=== PATIENT | male | born 1945 | race Caucasian/White ===

== ENCOUNTER 2016-04-26 21:29 | Inpatient (IN) | payer OTHER, MEDICAID ==
--- NOTE | 2016-04-26 22:28 | EDPHY ---
H & P Stated Complaint: intoxication? HPI/ROS: HPI CHIEF COMPLAINT: [ ] HISTORY OF PRESENT ILLNESS: [Need 4: Location, Duration, Severity, Quality, Context, Timing Modifying Factors, Associated S&S] Past Medical History: Past Surgical History: Social History: Family History: ROS REVIEW OF SYSTEMS: A comprehensive 10 point review of systems is otherwise negative aside from elements mentioned in the history of present illness. Exam Constitutional triage nursing summary reviewed, vital signs reviewed, awake/ alert. Eyes normal conjunctivae and sclera, EOMI, PERRLA. HENT normal inspection, atraumatic, moist mucus membranes, no epistaxis, neck supple/ no meningismus, no raccoon eyes. Respiratory clear to auscultation bilaterally, normal breath sounds, no respiratory distress, no wheezing. Cardiovascular rate normal, regular rhythm, no murmur, no edema, distal pulses normal. Gastrointestinal soft, non-tender, no rebound, no guarding, normal bowel sounds, no distension, no pulsatile mass. Genitourinary no CVA tenderness. Musculoskeletal no midline vertebral tenderness, full range of motion, no calf swelling, no tenderness of extremities, no meningismus, good pulses, neurovascularly intact. Skin pink, warm, & dry, no rash, skin atraumatic. Neurologic awake, alert and oriented x 3, AAOx3, moves all 4 extremities equally, motor intact, sensory intact, CN II-XII intact, normal cerebellar, normal vision, normal speech. Psychiatric normal mood/affect. Heme/Lymph/Immune no lymphadenopathy. Differential Diagnosis: Medical Decision Making: Re-evaluation: Source: Patient - Personal History Current Tetanus/Diphtheria Vaccine: Unsure Current Tetanus Diphtheria and Acellular Pertussis (TDAP): Unsure - Medical/Surgical History Hx Asthma: Yes Hx Chronic Respiratory Disease: No Hx Diabetes: No Hx Cardiac Disease: Yes Hx Renal Disease: No Hx Cirrhosis: No Hx Alcoholism: Yes Hx HIV/AIDS: No Hx Splenectomy or Spleen Trauma: No Other PMH: PMH- HTN, HLD, CAD, ASTHMA CHILD, ETOH. PSH- CARDIAC STENT X1 - Social History Smoking Status: Current every day smoker Constitutional: Initial Vital Signs Temperature (C) 37 C 04/26/16 21:29 Heart Rate 106 H 04/26/16 21:29 Respiratory Rate 14 04/26/16 21:29 Blood Pressure 108/74 04/26/16 21:29 O2 Sat (%) 88 L 04/26/16 21:29 O2 Delivery Mode Room Air Allergies/Adverse Reactions: No Known Allergies Allergy (Unverified 12/10/13 12:35) Home Medications: Medication Instructions Recorded Clopidogrel Bisulfate [Plavix (*)] 75 mg PO DAILY 12/20/13 Ramipril [Altace 5mg (*)] 5 mg PO DAILY 12/20/13 Atorvastatin Calcium [Lipitor 40 40 mg PO DAILY 01/24/15 mg (*)] Carvedilol [Coreg (*)] 6.25 mg PO BIDMEAL 02/12/15 Aspirin EC [Aspirin EC 81 mg (*)] 81 mg PO DAILY #100 tab 02/13/15 Docusate Sodium [Colace 100 MG (*)] 100 mg PO BID #60 cap 02/13/15 HYDROcodone/APAP 10/325 [[place] 1 - 2 tab PO Q6 PRN #30 tab 02/13/15 10/325 (*)] celeCOXIB [Celebrex (*)] 200 mg PO DAILY #20 cap 02/13/15 Medical Decision Making - Data Points Laboratory Results: 04/26/16 22:03 Ethyl Alcohol Pending
[2016-04-26 22:44] LABS: ETHANOL SERUM 353 mg/dL (0-10)
--- NOTE | 2016-04-26 22:58 | EDPHY ---
H & P Stated Complaint: intoxication? Time Seen by Provider: 04/26/16 22:54 HPI/ROS: HPI: 70-year-old male presents to emergency department brought in by EMS found down in an elevator where he lives with chief concern alcohol intoxication. Denies striking his head. Denies dizziness, headache, visual changes, neck pain , shortness of breath, chest pain, abdominal pain, nausea, vomiting. Drinks a large amount of alcohol daily. Lives alone. ROS:10 point review of systems is negative other than as stated in HPI Source: Patient - Personal History Current Tetanus/Diphtheria Vaccine: Unsure Current Tetanus Diphtheria and Acellular Pertussis (TDAP): Unsure - Medical/Surgical History Hx Asthma: Yes Hx Chronic Respiratory Disease: No Hx Diabetes: No Hx Cardiac Disease: Yes Hx Renal Disease: No Hx Cirrhosis: No Hx Alcoholism: Yes Hx HIV/AIDS: No Hx Splenectomy or Spleen Trauma: No Other PMH: PMH- HTN, HLD, CAD, ASTHMA CHILD, ETOH. PSH- CARDIAC STENT X1 - Family History Significant Family History: No pertinent family hx - Social History Smoking Status: Current every day smoker Alcohol Use: Heavy Drug Use: None Additional Social History: Lives alone - Physical Exam Exam: Temp 37.0, heart rate 106, respiratory rate 14, blood pressure 108/74, 88% on room air General: Awake, alert, calm, cooperative. No acute distress. Head: Normalocephalic. Atraumatic. EENT: PERRLA. EOMI. No pallor or injection. Anicteric. No nystagmus. No injection. TMs intact bilaterally with normal landmarks. No rhinnorhea, nasal passages clear. Oropharynx without redness, exudates, or lesions. Tonsils 2+ bilaterally, no exudates. Neck: Supple, nontender. No lymphadenopathy. Full range of motion. No meningismus. Respiratory: Breathing unlabored. Breath sounds equal and diminished bilaterally. CV: Chest nontender, atraumatic. Heart rate regular. No murmur, distal pulses 2+ bilaterally. Brisk cap refill all extremities. GI: Abdomen soft, nontender. Bowel sounds normoactive and positive x4 quadrants. : No suprapubic tenderness. No CVA or flank tenderness. Neuro: Alert. Oriented x 3. Speech clear. Nonfocal cranial nerves throughout. Sensation intact all extremities. Skin: Skin warm, dry, intact. No rashes, abrasions, or lacerations. Skin turgor normal. Extremities: Full range of motion in all 4 extremities. Strength 5+ all extremities. Constitutional: Initial Vital Signs Temperature (C) 37 C 04/26/16 21:29 Heart Rate 106 H 04/26/16 21:29 Respiratory Rate 14 04/26/16 21:29 Blood Pressure 108/74 04/26/16 21:29 O2 Sat (%) 88 L 04/26/16 21:29 O2 Delivery Mode Nasal Cannula O2 (L/minute) 2 Allergies/Adverse Reactions: No Known Allergies Allergy (Unverified 12/10/13 12:35) Home Medications: Medication Instructions Recorded Clopidogrel Bisulfate [Plavix (*)] 75 mg PO DAILY 12/20/13 Ramipril [Altace 5mg (*)] 5 mg PO DAILY 12/20/13 Atorvastatin Calcium [Lipitor 40 40 mg PO DAILY 01/24/15 mg (*)] Carvedilol [Coreg (*)] 6.25 mg PO BIDMEAL 02/12/15 Aspirin EC [Aspirin EC 81 mg (*)] 81 mg PO DAILY #100 tab 02/13/15 Docusate Sodium [Colace 100 MG (*)] 100 mg PO BID #60 cap 02/13/15 HYDROcodone/APAP 10/325 [[place] 1 - 2 tab PO Q6 PRN #30 tab 02/13/15 10/325 (*)] celeCOXIB [Celebrex (*)] 200 mg PO DAILY #20 cap 02/13/15 Medical Decision Making - Diagnostics Imaging: CT Brain Without Contrast 2308 hours Indication: Closed head injury. Rule out intracranial hemorrhage. Alcohol use. Impression: 1. Stable mild atrophy. 2. No hemorrhage, mass effect, or definite acute peripheral infarct. 3. Stable mild microvascular ischemic disease. ED Course/Re-evaluation: 2300: 70-year-old male presents to emergency department brought in by EMS found down in an elevator where he lives. Blood alcohol level 353. He denies striking his head. He denies shortness of breath or chest pain. Oxygen saturation is 88% on room air. Patient has chronic COPD. H&H stable. CO2 16. Anion gap 26. CT head negative for acute changes. 0015: 86% on room air. 2 duo nebs given. Lungs with occasional expiratory wheeze and rhonchi thereafter. 0115: Patient 79% on room air with ambulation. 2 L O2 nasal cannula 95%. Given 60 mg prednisone. Admitted to hospitalist service Dr. Hatfield. Bed Requested. Care of this patient transferred to my colleague Dr. Sander Jerez. Differential Diagnosis: Differential includes but is not limited to alcohol withdrawal, ACS, metabolic derangement, dehydration, hypoxia - Data Points Laboratory Results: Laboratory Results 04/26/16 22:03 04/26/16 22:03 04/27/16 04/26/16 00:46 22:03 WBC 3.50 L 10^3/uL (3.80-9.50) RBC 3.57 L 10^6/uL (4.40-6.38) Hgb 13.8 g/dL (13.7-17.5) Hct 39.5 L % (40.0-51.0) MCV 110.6 H fL (81.5-99.8) MCH 38.7 H pg (27.9-34.1) MCHC 34.9 g/dL (32.4-36.7) RDW 14.5 % (11.5-15.2) Plt Count 62 L 10^3/uL (150-400) MPV 9.8 fL (8.7-11.7) Neut % (Auto) 65.1 % (39.3-74.2) Lymph % (Auto) 22.6 % (15.0-45.0) [place] % (Auto) 8.6 % (4.5-13.0) Eos % (Auto) 0.6 % (0.6-7.6) Baso % (Auto) 1.7 % (0.3-1.7) Nucleat RBC Rel Count 0.6 H % (0.0-0.2) Absolute Neuts (auto) 2.28 10^3/uL (1.70-6.50) Absolute Lymphs (auto) 0.79 L 10^3/uL (1.00-3.00) Absolute Monos (auto) 0.30 10^3/uL (0.30-0.80) Absolute Eos (auto) 0.02 L 10^3/uL (0.03-0.40) Absolute Basos (auto) 0.06 10^3/uL (0.02-0.10) Absolute Nucleated RBC 0.02 H 10^3/uL (0-0.01) Immature Gran % 1.4 H % (0.0-1.1) Immature Gran # 0.05 10^3/uL (0.00-0.10) Sodium 142 mEq/L (134-144) Potassium 4.7 mEq/L (3.5-5.2) Chloride 100 mEq/L (97-110) Carbon Dioxide 16 L mEq/l (22-31) Anion Gap 26 mEq/L (8-16) BUN 22 mg/dL (7-23) Creatinine 1.1 mg/dL (0.7-1.3) Estimated GFR > 60 Glucose 79 mg/dL (70-100) Calcium 8.0 L mg/dL (8.5-10.4) Urine Color MARGARETTE Urine Appearance HAZY Urine pH 5.0 (5.0-7.5) Ur Specific [place] 1.023 (1.002-1.030) Urine Protein 2+ H (NEGATIVE) Urine Ketones 2+ H (NEGATIVE) Urine Blood 2+ H (NEGATIVE) Urine Nitrate NEGATIVE (NEGATIVE) Urine Bilirubin NEGATIVE (NEGATIVE) Urine Urobilinogen 4.0 H EU (0.2-1.0) Ur Leukocyte Esterase NEGATIVE (NEGATIVE) Urine RBC 1-3 /hpf (0-3) Urine WBC 1-3 /hpf (0-3) Ur Epithelial Cells TRACE /lpf (NONE-1+) Hyaline Casts 25-50 H /lpf (0-1) Urine Mucus 2+ H /lpf (NONE-1+) Ur Culture Indicated? NOT INDICATED (NI) Urine Glucose NEGATIVE (NEGATIVE) Urine Opiates Screen NEGATIVE (NEGATIVE) Urine Barbiturates NEGATIVE (NEGATIVE) Ur Phencyclidine Scrn NEGATIVE (NEGATIVE) Ur Amphetamine Screen NEGATIVE (NEGATIVE) U Benzodiazepines Scrn NEGATIVE (NEGATIVE) Urine Cocaine Screen NEGATIVE (NEGATIVE) U Marijuana (THC) Screen NEGATIVE (NEGATIVE) Ethyl Alcohol 353 H mg/dL (0-10) Medications Given: Discontinued Medications Albuterol/Ipratropium (Duoneb) 3 ml IH EDNOW ONE Stop: 04/27/16 00:21 Last Admin: 04/27/16 00:25 Dose: 3 ml Sodium Chloride (Ns) 1,000 mls @ 0 mls/hr IV ONCE ONE PRN Reason: Wide Open Stop: 04/26/16 23:00 Last Admin: 04/26/16 23:18 Dose: 1,000 mls Departure - Departure Disposition: [facility] Inpatient Acute Clinical Impression: Alcohol intoxication, hypoxia, COPD (chronic obstructive pulmonary disease) Condition: Good Instructions: Alcohol Intoxication (ED), Hypoxia (ED) Additional Instructions: Plan: Go directly to the [facility] for alcohol withdrawal Follow up with primary care Referrals: NONE *PRIMARY CARE P,. [Primary Care Provider] - As per Instructions
[2016-04-26] MEDS ORDERED: NS 1,000 ML IV ONE (22:59)
--- NOTE | 2016-04-26 23:15 | CPEKG ---
Heart Rate: 83 RR Interval: 723 P-R Interval: 196 QRSD Interval: 104 QT Interval: 428 QTC Interval: 503 P [place]: 82 QRS [place]: 66 T Wave [place]: 32 EKG Severity - ABNORMAL ECG - EKG Impression: SINUS RHYTHM EKG Impression: LOW VOLTAGE WITH RIGHT AXIS DEVIATION EKG Impression: PROLONGED QT INTERVAL Electronically Signed By: Stas Jerez 27-Apr-2016 07:08:14
--- NOTE | 2016-04-26 23:38 | CT ---
CT Brain Without Contrast 2308 hours History: Closed head injury. Rule out intracranial hemorrhage. Alcohol use. Technique: Axial computed tomographic images of the brain without contrast. Images were reconstruct ed down to 1.25 mm slice thickness. Dose reduction techniques were utilized. Comparison the prior CT study of December 10, 2013. Findings: Ventricles, cisterns, and sulci are widened consistent with stable mild atrophy. No hydroc ephalus, masses, midline shift/herniation, or subdural hematomas. No intraparenchymal hemorrhage or m ass effect. Stable mild hypodensities are seen in the white matter of bilateral cerebral hemispheres. There is no acute peripheral cerebral infarct seen. Arteriosclerotic calcifications are noted asso ciated with distal ICA in the parasellar location bilaterally. Bone windows demonstrate no displaced fractures. There is mild to moderate mucosal thickening right maxillary sinus. The remainder of the paranasal si nuses are clear as well as mastoid air cells. Impression: 1. Stable mild atrophy. 2. No hemorrhage, mass effect, or definite acute peripheral infarct. 3. Stable mild microvascular ischemic disease. These findings were discussed by telephone with Trinity Zuñiga NP at 2333 hours.
[2016-04-26 23:47] LABS: % IMMATURE GRANULYOCYTES 1.4 % (0.0-1.1); ABSOLUTE IMMATURE GRANULOCYTES 0.05 10^3/uL (0.00-0.10); ABSOLUTE NRBC COUNT 0.02 10^3/uL (0-0.01); ADD DIFF? NO; ADD MORPH? NO; ADD SCAN? NO; ATYPICAL LYMPHOCYTE FLAG 0 (0-99); FRAGMENT RBC FLAG 0 (0-99); HEMATOCRIT 39.5 % (40.0-51.0); HEMOGLOBIN 13.8 g/dL (13.7-17.5); LEFT SHIFT FLG 0 (0-99); LIPEMIA HEMOLYSIS FLAG 90 (0-99); MEAN CELL HEMOGLOBIN 38.7 pg (27.9-34.1); MEAN CELL HEMOGLOBIN CONCENTR. 34.9 g/dL (32.4-36.7); MEAN CELL VOLUME 110.6 fL (81.5-99.8); MEAN PLATELET VOLUME 9.8 fL (8.7-11.7); NRBC-AUTO% 0.6 % (0.0-0.2); PLATELET CLUMPS FLAG 0 (0-99); PLATELET COUNT 62 10^3/uL (150-400); RED BLOOD CELL COUNT 3.57 10^6/uL (4.40-6.38); RED CELL DISTRIBUTION WIDTH 14.5 % (11.5-15.2)
[2016-04-26 23:52] LABS: ANION GAP 26 mEq/L (8-16); CARBON DIOXIDE 16 mEq/l (22-31); CHLORIDE 100 mEq/L (97-110); CREATININE 1.1 mg/dL (0.7-1.3); GLOMERULAR FILTRATION RATE > 60; GLUCOSE 79 mg/dL (70-100); POTASSIUM 4.7 mEq/L (3.5-5.2); SODIUM 142 mEq/L (134-144)
[2016-04-27] MEDS ORDERED: IPRATROPIUM/ALBUTEROL 3 ML DEYVIAL IH ONE ×2 (00:20→00:53)
[2016-04-27] MEDS ORDERED: IPRATROPIUM/ALBUTEROL 3 ML DEYVIAL ONE (00:20)
[2016-04-27 01:03] LABS: COLOR AMBER; LEUKOCYTE ESTERASE,URINE NEGATIVE (NEGATIVE); NITRITE,URINE NEGATIVE (NEGATIVE)
[2016-04-27 01:09] LABS: HYALINE CASTS 25-50 /lpf (0-1); MUCUS 2+ /lpf (NONE-1+)
[2016-04-27] MEDS ORDERED: ONDANSETRON DISINTEGRATING 4 MG TAB PO PRN (02:09)
[2016-04-27] MEDS ORDERED: ONDANSETRON 4 MG/2 ML VIAL IVP PRN (02:09)
[2016-04-27] MEDS ORDERED: ACETAMINOPHEN 325 MG TAB PO PRN (02:09)
[2016-04-27] MEDS ORDERED: ALBUTEROL 3 ML DEYVIAL IH PRN (02:09)
[2016-04-27] MEDS ORDERED: LORazepam 2 MG/ML INJ ONE (02:10)
[2016-04-27] MEDS ORDERED: MAG HYDROX/AL HYDROX/SIMETH 30 ML UDCUP PO PRN (02:11)
[2016-04-27] MEDS ORDERED: NS 1,000 ML IV SCH (02:15)
[2016-04-27] MEDS: LORazepam 2 MG/ML INJ IVP PRN ×3 (02:20→11:55)
[2016-04-27 06:35] LABS: % IMMATURE GRANULYOCYTES 0.8 % (0.0-1.1); ABSOLUTE IMMATURE GRANULOCYTES 0.03 10^3/uL (0.00-0.10); ADD DIFF? NO; ADD MORPH? NO; ADD SCAN? NO; ATYPICAL LYMPHOCYTE FLAG 0 (0-99); FRAGMENT RBC FLAG 0 (0-99); HEMATOCRIT 32.9 % (40.0-51.0); HEMOGLOBIN 11.7 g/dL (13.7-17.5); LEFT SHIFT FLG 0 (0-99); LIPEMIA HEMOLYSIS FLAG 90 (0-99); MEAN CELL HEMOGLOBIN CONCENTR. 35.6 g/dL (32.4-36.7); MEAN CELL VOLUME 109.7 fL (81.5-99.8); MEAN PLATELET VOLUME 9.6 fL (8.7-11.7); PLATELET CLUMPS FLAG 0 (0-99); RED CELL DISTRIBUTION WIDTH 14.6 % (11.5-15.2)
[2016-04-27 06:39] LABS: PLATELET COUNT 40 10^3/uL (150-400)
[2016-04-27] MEDS: IPRATROPIUM/ALBUTEROL 3 ML DEYVIAL IH SCH ×3 (06:44→17:03)
--- NOTE | 2016-04-27 06:46 | PDGENHP ---
History and Physical - Chief Complaint alcohol intoxication - History of Present Illness Patient is a 70-year-old male with a history of COPD, CAD , chronic continuous alcohol use who presents to the ED after being found on the ground in the elevator of his apartment building. Patient was intoxicated and unable to stand up on his own, so EMS was called. Patient states he had been drinking alcohol about 1 pt of vodka over the course of the day, remembers getting to the elevator and falling, he denies any head trauma or loss of consciousness. Reports fall was mechanical in nature. He did not want to be brought to the ER but was unable to stand on his own, so his building-mates called an ambulance. He denies any recent fevers, chills, chest pain, cough, shortness of breath, nausea, vomiting, diarrhea or urinary complaints. On arrival to the ED patient was afebrile hemodynamically stable, but hypoxic on room air. Labs are significant for thrombocytopenia, no leukocytosis, normal BMP an alcohol level of greater than 300. Chest x-ray was unremarkable, other than evidence of COPD. Hypoxia did not improve with nebs, so patient was admitted to the hospitalist service for further management. History Information - Allergies/Home Medication List Allergies/Adverse Reactions: No Known Allergies Allergy (Unverified 12/10/13 12:35) Home Medications: Clopidogrel Bisulfate [Plavix (*)] 75 mg PO DAILY 12/20/13 [Last Taken 02/04/15 08:00] Ramipril [Altace 5mg (*)] 5 mg PO DAILY 12/20/13 [Last Taken 02/11/15 08:00] Atorvastatin Calcium [Lipitor 40 mg (*)] 40 mg PO DAILY 01/24/15 [Last Taken 08:00] Carvedilol [Coreg (*)] 6.25 mg PO BIDMEAL 02/12/15 [Last Taken 02/11/15 08:00] I have personally reviewed and updated: family history, medical history, social history, surgical history - Past Medical History Additional medical history: CAD s/p 2 stents in distant past. COPD. chronic alcohol use. chronic tobacco use - Surgical History Reports: no pertinent surgical hx - Family History Positive for: CAD - Social History Smoking Status: Current every day smoker (1 PPD x 20 years) Alcohol Use: Heavy (1 pint of vodka daily) Drug Use: None Additional social history: patient lives alone in an independent living facility, he has 1 son who lives in [place]. 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 Review of Systems ROS: 10pt was reviewed & negative except for what was stated in HPI & below Physical Exam Temp Pulse Resp BP Pulse Ox 36.8 C 102 H 16 135/73 H 93 04/27/16 02:34 04/27/16 02:34 04/27/16 02:34 04/27/16 02:34 04/27/16 02:34 O2 (L/minute) 3 Constitutional: no apparent distress, appears nourished, not in pain, other ( Tremulous) Eyes: PERRL, anicteric sclera, EOMI Ears, Nose, Mouth, Throat: moist mucous membranes, hearing normal, ears appear normal, no oral mucosal ulcers Cardiovascular: regular rate and rhythym, no murmur, rub, or gallop, pulses symmetric bilaterally, tachycardia, No JVD, No edema Peripheral Pulses: 2+: dorsalis-pedis (R), dorsalis-pedis (L) Respiratory: no respiratory distress, no rales or rhonchi, clear to auscultation Gastrointestinal: normoactive bowel sounds, soft, non-tender abdomen, no palpable masses Genitourinary: no bladder fullness, no bladder tenderness Skin: warm, normal color, no rashes or abrasions, no fluctuance, No mottled Musculoskeletal: full muscle strength, no muscle tenderness, normal joint ROM, no joint effusions Neurologic: AAOx3, sensation intact bilaterally, CN II-XII Intact, No weakness, No numbness Psychiatric: interacting appropriately, not anxious, not encephalopathic, thought process linear, other ( intoxicated, but answering all questions and following commands appropriately, mild distal tremor present) Lab Data & Imaging Review 04/27/16 06:00 04/27/16 06:00 WBC 3.92 10^3/uL (3.80-9.50) 04/27/16 06:00 RBC 3.00 10^6/uL (4.40-6.38) L 04/27/16 06:00 Hgb 11.7 g/dL (13.7-17.5) L 04/27/16 06:00 Hct 32.9 % (40.0-51.0) L 04/27/16 06:00 MCV 109.7 fL (81.5-99.8) H 04/27/16 06:00 MCH 39.0 pg (27.9-34.1) H 04/27/16 06:00 MCHC 35.6 g/dL (32.4-36.7) 04/27/16 06:00 RDW 14.6 % (11.5-15.2) 04/27/16 06:00 Plt Count 40 10^3/uL (150-400) L 04/27/16 06:00 MPV 9.6 fL (8.7-11.7) 04/27/16 06:00 Neut % (Auto) 45.1 % (39.3-74.2) 04/27/16 06:00 Lymph % (Auto) 42.9 % (15.0-45.0) 04/27/16 06:00 Bee % (Auto) 9.9 % (4.5-13.0) 04/27/16 06:00 Eos % (Auto) 0.5 % (0.6-7.6) L 04/27/16 06:00 Baso % (Auto) 0.8 % (0.3-1.7) 04/27/16 06:00 Nucleat RBC Rel Count 0.0 % (0.0-0.2) 04/27/16 06:00 Absolute Neuts (auto) 1.77 10^3/uL (1.70-6.50) 04/27/16 06:00 Absolute Lymphs (auto) 1.68 10^3/uL (1.00-3.00) 04/27/16 06:00 Absolute Monos (auto) 0.39 10^3/uL (0.30-0.80) 04/27/16 06:00 Absolute Eos (auto) 0.02 10^3/uL (0.03-0.40) L 04/27/16 06:00 Absolute Basos (auto) 0.03 10^3/uL (0.02-0.10) 04/27/16 06:00 Absolute Nucleated RBC 0.00 10^3/uL (0-0.01) 04/27/16 06:00 Immature Gran % 0.8 % (0.0-1.1) 04/27/16 06:00 Immature Gran # 0.03 10^3/uL (0.00-0.10) 04/27/16 06:00 Sodium 142 mEq/L (134-144) 04/26/16 22:03 Potassium 4.7 mEq/L (3.5-5.2) 04/26/16 22:03 Chloride 100 mEq/L (97-110) 04/26/16 22:03 Carbon Dioxide 16 mEq/l (22-31) L 04/26/16 22:03 Anion Gap 26 mEq/L (8-16) 04/26/16 22:03 BUN 22 mg/dL (7-23) 04/26/16 22:03 Creatinine 1.1 mg/dL (0.7-1.3) 04/26/16 22:03 Estimated GFR > 60 04/26/16 22:03 Glucose 79 mg/dL (70-100) 04/26/16 22:03 Calcium 8.0 mg/dL (8.5-10.4) L 04/26/16 22:03 Urine Color MARGARETTE 04/27/16 00:46 Urine Appearance HAZY 04/27/16 00:46 Urine pH 5.0 (5.0-7.5) 04/27/16 00:46 Ur Specific [place] 1.023 (1.002-1.030) 04/27/16 00:46 Urine Protein 2+ (NEGATIVE) H 04/27/16 00:46 Urine Ketones 2+ (NEGATIVE) H 04/27/16 00:46 Urine Blood 2+ (NEGATIVE) H 04/27/16 00:46 Urine Nitrate NEGATIVE (NEGATIVE) 04/27/16 00:46 Urine Bilirubin NEGATIVE (NEGATIVE) 04/27/16 00:46 Urine Urobilinogen 4.0 EU (0.2-1.0) H 04/27/16 00:46 Ur Leukocyte Esterase NEGATIVE (NEGATIVE) 04/27/16 00:46 Urine RBC 1-3 /hpf (0-3) 04/27/16 00:46 Urine WBC 1-3 /hpf (0-3) 04/27/16 00:46 Ur Epithelial Cells TRACE /lpf (NONE-1+) 04/27/16 00:46 Hyaline Casts 25-50 /lpf (0-1) H 04/27/16 00:46 Urine Mucus 2+ /lpf (NONE-1+) H 04/27/16 00:46 Ur Culture Indicated? NOT INDICATED (NI) 04/27/16 00:46 Urine Glucose NEGATIVE (NEGATIVE) 04/27/16 00:46 Urine Opiates Screen NEGATIVE (NEGATIVE) 04/27/16 00:46 Urine Barbiturates NEGATIVE (NEGATIVE) 04/27/16 00:46 Ur Phencyclidine Scrn NEGATIVE (NEGATIVE) 04/27/16 00:46 Ur Amphetamine Screen NEGATIVE (NEGATIVE) 04/27/16 00:46 U Benzodiazepines Scrn NEGATIVE (NEGATIVE) 04/27/16 00:46 Urine Cocaine Screen NEGATIVE (NEGATIVE) 04/27/16 00:46 U Marijuana (THC) Screen NEGATIVE (NEGATIVE) 04/27/16 00:46 Ethyl Alcohol 353 mg/dL (0-10) H 04/26/16 22:03 Visualized and Interpreted Chest x-ray results: Yes Chest X-Ray results: no infiltrate, normal Visualized and Interpreted imaging results: Yes Interpretation: CT head: no acute intracranial pathology; mild atrophy Visualized and Interpreted EKG results: Yes EKG Interpretation: Positive for: normal sinsus rhythm (no st/t wave changes) Assessment & Plan Assessment: patient is a 70-year-old male with history of CAD, COPD, active tobacco and alcohol use who presents to the ED after being found intoxicated in his apartment building. ED workup revealed hypoxia of unclear etiology as well as significantly elevated alcohol level. Plan: # acute hypoxic respiratory failure Patient has a long history of smoking and chest x-ray appears consistent with COPD changes, however patient denies a diagnosis of COPD, and denies being treated for this as an outpatient. Given his presumed COPD he likely has an element of chronic respiratory failure. Acute hypoxia may be related to acute intoxication vs mild COPD exacerbation. Low suspicion for PE, however, given tachycardia, will check d-dimer. - duonebs prn - O2 via NC # acute alcohol intoxication, chronic ETOH use On my evaluation patient was demonstrating evidence of mild withdrawal. - CIWA protocol with ativan prn - thiamine/folate/mvn # active tobacco use Counseled patient on risks of chronic tobacco use. Offered nicotine patch prn. # thrombocytopenia, macrocytic anemia Likely related to chronic alcohol use. No obvious signs of bleeding, h/h is stable. Will monitor. # CAD Patient denies any cardiac symptoms on presentation; EKG is without evidence of ischemia. Will confirm and continue home meds. # dispo: admit to observation unit # full code
[2016-04-27 06:57] LABS: ALANINE AMINOTRANSFERASE 76 IU/L (21-72); ALBUMIN 3.4 g/dL (3.5-5.0); ALKALINE PHOSPHATASE 94 IU/L (38-126); ANION GAP 14 mEq/L (8-16); ASPARTATE AMINOTRANSFERASE 210 IU/L (17-59); BILIRUBIN,TOTAL 1.3 mg/dL (0.1-1.4); BILIRUBIN-CONJUGATED 0.9 mg/dL (0.0-0.5); BILIRUBIN-UNCONJUGATED 0.4 mg/dL (0.0-1.1); CALCIUM 7.6 mg/dL (8.5-10.4); CARBON DIOXIDE 22 mEq/l (22-31); CHLORIDE 102 mEq/L (97-110); CREATININE 0.8 mg/dL (0.7-1.3); GLOMERULAR FILTRATION RATE > 60; GLUCOSE 59 mg/dL (70-100); MAGNESIUM 1.5 mg/dL (1.6-2.3); POTASSIUM 4.1 mEq/L (3.5-5.2); SODIUM 138 mEq/L (134-144); TOTAL PROTEIN 5.8 g/dL (6.3-8.2)
[2016-04-27 07:09] LABS: PLATELET ESTIMATE DECREASED (ADEQ)
[2016-04-27] MEDS ORDERED: PROTOCOL POTASSIUM 1 DOSE MISC PRN (07:25)
[2016-04-27] MEDS ORDERED: PROTOCOL MAGNESIUM 1 DOSE IV PRN (07:25)
--- NOTE | 2016-04-27 08:29 | DX ---
PA and Lateral Chest Clinical Indications: History of trauma. Hypoxia. Comparison to the prior study December 20, 2013. Findings: The lungs are clear. Mild hyperexpansion is suspected. Hilar and mediastinal contours are n ormal. There is no pneumothorax. Osseous structures are intact. The heart size and pulmonary vascular ity are normal. Coronary artery stents are noted. Impression: Chest negative for acute posttraumatic sequela. Query airways disease.
[2016-04-27] MEDS ORDERED: FAMOTIDINE 20 MG TAB PO SCH (09:00)
[2016-04-27] MEDS ORDERED: ENOXAPARIN 40 MG/0.4 ML SYR SC SCH (09:00)
[2016-04-27] MEDS: PANTOPRAZOLE SODIUM 40 MG TAB PO SCH (09:54)
[2016-04-27] MEDS: FOLIC ACID 1 MG TAB PO SCH (09:54)
[2016-04-27] MEDS: THIAMINE HCL 100 MG TAB PO SCH (09:54)
[2016-04-27] MEDS: MULTIVITAMINS 1 EACH TAB PO SCH (09:54)
[2016-04-27] MEDS: VODKA 50 ML BOTTLE PO SCH ×3 (13:02→21:29)
--- NOTE | 2016-04-27 13:31 | HOSPPROG ---
Hospitalist Progress Note Assessment/Plan: Assessment: Patient is a 70-year-old male with history of CAD, COPD, active tobacco and alcohol use who presents to the ED after being found intoxicated in his apartment building. ED workup revealed hypoxia of unclear etiology as well as significantly elevated alcohol level. Plan: # acute hypoxic respiratory failure secondary to etoh (dimer is elevated, but doubt PE) - duonebs prn - O2 via NC # acute alcohol intoxication, chronic ETOH use now with signs of withdrawal - CIWA protocol with librium - thiamine/folate/mvi # active tobacco use Counseled patient on risks of chronic tobacco use. Offered nicotine patch prn. # thrombocytopenia, macrocytic anemia Likely related to chronic alcohol use. No obvious signs of bleeding, h/h is stable. Will monitor. # CAD Patient denies any cardiac symptoms on presentation; EKG is without evidence of ischemia. Will confirm and continue home meds. # dispo: admit to observation unit # full code Objective: Vital Signs Temp Pulse Resp BP Pulse Ox 36.7 C 81 18 102/47 L 94 04/27/16 08:19 04/27/16 08:19 04/27/16 08:19 04/27/16 08:19 04/27/16 08:19 Laboratory Results 04/27/16 06:00 04/27/16 06:00 04/26/16 04/27/16 04/28/16 05:59 05:59 05:59 Intake Total 1000 Balance 1000 gen tremulous confused cv rrr pulm clear abd soft +bs ICD10 Worksheet Patient Problems: Problems Problem Status Diagnosed Alcohol intoxication Acute COPD (chronic obstructive pulmonary disease) Acute Primary localized osteoarthritis of left hip Acute
[2016-04-27] MEDS ORDERED: chlordiazePOXIDE 25 MG CAP PO ONE (13:34)
[2016-04-27] MEDS: CARVEDILOL 6.25 MG TAB PO SCH (17:27)
[2016-04-27] MEDS ORDERED: MAGNESIUM SULF 1 GM/DEXTROSE 100 ML IV ONE (18:07)
[2016-04-27] MEDS ORDERED: MAGNESIUM SULF 1 GM/DEXTROSE 100 ML BAG IV ONE (18:10)
[2016-04-27] MEDS ORDERED: NON-FORMULARY NEW DRUG (Simvastatin [Zocor] 40 MG) PO SCH (21:00)
[2016-04-27] MEDS: ATORVASTATIN CALCIUM 20 MG TAB PO SCH (21:29)
[2016-04-27] MEDS: NICOTINE POLACRILEX 2 MG GUM B PRN (21:29)
[2016-04-27] MEDS: chlordiazePOXIDE 25 MG CAP PO PRN (23:45)
[2016-04-28 05:09] LABS: % IMMATURE GRANULYOCYTES 0.3 % (0.0-1.1); ABSOLUTE IMMATURE GRANULOCYTES 0.01 10^3/uL (0.00-0.10); ABSOLUTE NRBC COUNT 0.02 10^3/uL (0-0.01); ADD DIFF? NO; ADD MORPH? NO; ADD SCAN? NO; ATYPICAL LYMPHOCYTE FLAG 10 (0-99); FRAGMENT RBC FLAG 0 (0-99); HEMATOCRIT 35.2 % (40.0-51.0); HEMOGLOBIN 12.2 g/dL (13.7-17.5); LEFT SHIFT FLG 0 (0-99); LIPEMIA HEMOLYSIS FLAG 90 (0-99); MEAN CELL HEMOGLOBIN 37.8 pg (27.9-34.1); MEAN CELL HEMOGLOBIN CONCENTR. 34.7 g/dL (32.4-36.7); NRBC-AUTO% 0.6 % (0.0-0.2); PLATELET CLUMPS FLAG 0 (0-99); RED BLOOD CELL COUNT 3.23 10^6/uL (4.40-6.38); RED CELL DISTRIBUTION WIDTH 13.8 % (11.5-15.2)
[2016-04-28 05:17] LABS: PLATELET COUNT 38 10^3/uL (150-400)
[2016-04-28 05:34] LABS: ANION GAP 8 mEq/L (8-16); CALCIUM 8.1 mg/dL (8.5-10.4); CARBON DIOXIDE 28 mEq/l (22-31); CHLORIDE 99 mEq/L (97-110); CREATININE 0.7 mg/dL (0.7-1.3); GLOMERULAR FILTRATION RATE > 60; GLUCOSE 125 mg/dL (70-100); MAGNESIUM 1.5 mg/dL (1.6-2.3); SODIUM 135 mEq/L (134-144)
[2016-04-28 05:46] LABS: PLATELET ESTIMATE DECREASED (ADEQ)
[2016-04-28] MEDS: VODKA 50 ML BOTTLE PO SCH ×3 (06:09→21:15)
[2016-04-28] MEDS: CARVEDILOL 6.25 MG TAB PO SCH ×2 (08:49→17:58)
[2016-04-28] MEDS: FOLIC ACID 1 MG TAB PO SCH (08:50)
[2016-04-28] MEDS: OMEGA-3 FATTY ACIDS 1,000 MG CAP PO SCH (08:50)
[2016-04-28] MEDS: MULTIVITAMINS 1 EACH TAB PO SCH (08:50)
[2016-04-28] MEDS: NICOTINE POLACRILEX 2 MG GUM B PRN (08:51)
[2016-04-28] MEDS: THIAMINE HCL 100 MG TAB PO SCH (08:51)
[2016-04-28] MEDS: PANTOPRAZOLE SODIUM 40 MG TAB PO SCH (08:51)
[2016-04-28] MEDS: RAMIPRIL 5 MG CAP PO SCH (08:51)
[2016-04-28] MEDS ORDERED: MAGNESIUM SULF 1 GM/DEXTROSE 100 ML IV ONE (09:00)
[2016-04-28] MEDS: ASPIRIN EC 81 MG TAB PO SCH (09:03)
[2016-04-28] MEDS: CLOPIDOGREL BISULFATE 75 MG TAB PO SCH (09:04)
[2016-04-28] MEDS: chlordiazePOXIDE 25 MG CAP PO PRN ×5 (09:09→21:14)
--- NOTE | 2016-04-28 11:38 | HOSPPROG ---
Hospitalist Progress Note Assessment/Plan: Assessment: Patient is a 70-year-old male with history of CAD, COPD, active tobacco and alcohol use who presents to the ED after being found intoxicated in his apartment building. ED workup revealed hypoxia of unclear etiology as well as significantly elevated alcohol level. # acute alcohol intoxication now going through acute alcohol withdrawal - CIWA protocol with librium - thiamine/folate/mvi -pt does not seem safe to dc home unable to ambulate # acute hypoxic respiratory failure secondary to etoh (dimer is elevated, but doubt PE) - duonebs prn - O2 via NC # active tobacco use Counseled patient on risks of chronic tobacco use. Offered nicotine patch prn. # thrombocytopenia, macrocytic anemia Likely related to chronic alcohol use. No obvious signs of bleeding, h/h is stable. Will monitor. # CAD Patient denies any cardiac symptoms on presentation; EKG is without evidence of ischemia. Will confirm and continue home meds. # dispo: change to inpatient status given etoh withdrawal and inability to care for himself # full code Subjective: pt wants to go home, but can't feed himself or walk independently Objective: Vital Signs Temp Pulse Resp BP Pulse Ox 36.9 C 88 22 H 102/69 92 04/28/16 08:17 04/28/16 08:17 04/28/16 08:17 04/28/16 08:17 04/28/16 09:39 Laboratory Results 04/28/16 04:45 04/28/16 04:45 04/27/16 04/28/16 04/29/16 05:59 05:59 05:59 Intake Total 1000 570 Balance 1000 570 - Physical Exam Constitutional: no apparent distress, appears nourished, not in pain Cardiovascular: regular rate and rhythym, no murmur, rub, or gallop Respiratory: no respiratory distress, no rales or rhonchi, clear to auscultation Gastrointestinal: normoactive bowel sounds, soft, non-tender abdomen, no palpable masses Skin: no rashes or abrasions, no fluctuance, no induration Neurologic: AAOx3, other (tremulous) ICD10 Worksheet Patient Problems: Problems Problem Status Diagnosed Alcohol intoxication Acute COPD (chronic obstructive pulmonary disease) Acute Primary localized osteoarthritis of left hip Acute
[2016-04-28] MEDS ORDERED: VODKA 50 ML BOTTLE PO ONE (17:00)
[2016-04-28 18:17] LABS: POTASSIUM 3.5 mEq/L (3.5-5.2)
[2016-04-28] MEDS ORDERED: POTASSIUM CL 10 MEQ TAB PO ONE (19:26)
[2016-04-28] MEDS: ATORVASTATIN CALCIUM 20 MG TAB PO SCH (21:15)
[2016-04-28] MEDS: LORazepam 2 MG/ML INJ IVP PRN (23:08)
[2016-04-29] MEDS: chlordiazePOXIDE 25 MG CAP PO PRN ×3 (00:55→08:29)
[2016-04-29] MEDS: LORazepam 2 MG/ML INJ IVP PRN (03:56)
[2016-04-29 05:32] LABS: % IMMATURE GRANULYOCYTES 0.4 % (0.0-1.1); ABSOLUTE IMMATURE GRANULOCYTES 0.01 10^3/uL (0.00-0.10); ADD DIFF? NO; ADD MORPH? NO; ADD SCAN? NO; ATYPICAL LYMPHOCYTE FLAG 0 (0-99); FRAGMENT RBC FLAG 0 (0-99); HEMATOCRIT 33.7 % (40.0-51.0); HEMOGLOBIN 11.6 g/dL (13.7-17.5); LEFT SHIFT FLG 0 (0-99); LIPEMIA HEMOLYSIS FLAG 90 (0-99); MEAN CELL HEMOGLOBIN 37.9 pg (27.9-34.1); MEAN CELL HEMOGLOBIN CONCENTR. 34.4 g/dL (32.4-36.7); MEAN CELL VOLUME 110.1 fL (81.5-99.8); MEAN PLATELET VOLUME 10.2 fL (8.7-11.7); PLATELET CLUMPS FLAG 10 (0-99); RED BLOOD CELL COUNT 3.06 10^6/uL (4.40-6.38); RED CELL DISTRIBUTION WIDTH 13.9 % (11.5-15.2)
[2016-04-29 05:36] LABS: PLATELET COUNT 37 10^3/uL (150-400)
[2016-04-29 06:00] LABS: PLATELET ESTIMATE DECREASED (ADEQ)
[2016-04-29] MEDS: VODKA 50 ML BOTTLE PO SCH (06:05)
[2016-04-29 06:28] LABS: POTASSIUM 3.4 mEq/L (3.5-5.2)
[2016-04-29] MEDS ORDERED: POTASSIUM CL 10 MEQ TAB PO ONE (07:34)
[2016-04-29 08:13] LABS: ANION GAP 7 mEq/L (8-16); CALCIUM 8.1 mg/dL (8.5-10.4); CARBON DIOXIDE 28 mEq/l (22-31); CHLORIDE 100 mEq/L (97-110); CREATININE 0.6 mg/dL (0.7-1.3); GLOMERULAR FILTRATION RATE > 60; GLUCOSE 93 mg/dL (70-100); MAGNESIUM 1.6 mg/dL (1.6-2.3); SODIUM 135 mEq/L (134-144)
[2016-04-29] MEDS: RAMIPRIL 5 MG CAP PO SCH (08:28)
[2016-04-29] MEDS: OMEGA-3 FATTY ACIDS 1,000 MG CAP PO SCH (08:28)
[2016-04-29] MEDS: PANTOPRAZOLE SODIUM 40 MG TAB PO SCH (08:29)
[2016-04-29] MEDS: THIAMINE HCL 100 MG TAB PO SCH (08:29)
[2016-04-29] MEDS: CARVEDILOL 6.25 MG TAB PO SCH ×2 (08:29→18:02)
[2016-04-29] MEDS: FOLIC ACID 1 MG TAB PO SCH (08:29)
[2016-04-29] MEDS: MULTIVITAMINS 1 EACH TAB PO SCH (08:29)
[2016-04-29] MEDS ORDERED: MAGNESIUM SULF 1 GM/DEXTROSE 100 ML IV ONE (08:55)
--- NOTE | 2016-04-29 09:06 | HOSPPROG ---
Hospitalist Progress Note Assessment/Plan: Assessment: Patient is a 70-year-old male with history of CAD, COPD, active tobacco and alcohol use who presents to the ED after being found intoxicated in his apartment building. ED workup revealed hypoxia of unclear etiology as well as significantly elevated alcohol level. # acute alcohol intoxication now going through acute alcohol withdrawal - CIWA protocol with librium - thiamine/folate/mvi -pt does not seem safe to dc home unable to ambulate -Will dc vodka now that pt expresses wishes for sobriety # acute hypoxic respiratory failure secondary to etoh (dimer is elevated, but doubt PE) - duonebs prn - O2 via NC # active tobacco use Counseled patient on risks of chronic tobacco use. Offered nicotine patch prn. # thrombocytopenia, macrocytic anemia Likely related to chronic alcohol use. No obvious signs of bleeding, h/h is stable. Will monitor. # CAD Patient denies any cardiac symptoms on presentation; EKG is without evidence of ischemia. Will confirm and continue home meds. # hypothyroidism #hypokalemia/hypophosphatemia/hypomagnasemia -replace per protocol # dispo: continue inpatient status given etoh withdrawal and inability to care for himself. He will likely require SNF placement if agreeable once his withdrawal is stabilized # full code Pt is high risk given the severity of his withdrawal Subjective: States he is "fine". wants to go home, but unable to ambulate or meet ADLs per medical staff assistant. Noted to have continues desats while off oxygen. He tells me this morning that he would NOW like to stop drinking Objective: Vital Signs Temp Pulse Resp BP Pulse Ox 36.4 C 74 16 101/69 97 04/29/16 08:10 04/29/16 08:29 04/29/16 08:10 04/29/16 08:29 04/29/16 08:10 Laboratory Results 04/29/16 05:03 04/29/16 05:03 04/28/16 04/29/16 04/30/16 05:59 05:59 05:59 Intake Total 1850 Balance 1850 - Physical Exam Constitutional: no apparent distress Eyes: PERRL, EOMI, No anicteric sclera Cardiovascular: regular rate and rhythym, no murmur, rub, or gallop Respiratory: no respiratory distress, no rales or rhonchi, clear to auscultation Neurologic: CN II-XII Intact, other (persistent severe tremor) ICD10 Worksheet Patient Problems: Problems Problem Status Diagnosed Alcohol intoxication Acute COPD (chronic obstructive pulmonary disease) Acute Primary localized osteoarthritis of left hip Acute
[2016-04-29] MEDS ORDERED: PROTOCOL K PHOSPHATE 1 DOSE IV PRN (09:10)
[2016-04-29] MEDS ORDERED: chlordiazePOXIDE 25 MG CAP PO PRN (09:11)
[2016-04-29] MEDS: CLOPIDOGREL BISULFATE 75 MG TAB PO SCH (10:08)
[2016-04-29] MEDS: ASPIRIN EC 81 MG TAB PO SCH (10:08)
[2016-04-29] MEDS ORDERED: K PHOS 10 MMOL in D5W 250 ML IV ONE (11:30)
[2016-04-29] MEDS: LEVOTHYROXINE 50 MCG TAB PO SCH (11:41)
[2016-04-29] MEDS ORDERED: NS 1,000 ML IV ONE (16:30)
[2016-04-29] MEDS: D5W 1/2 NS W/ 20 KCl/L 1,000 ML IV SCH (20:02)
[2016-04-29] MEDS: ATORVASTATIN CALCIUM 20 MG TAB PO SCH (20:03)
[2016-04-29] MEDS: LORazepam 1 MG TAB PO PRN (20:14)
[2016-04-30] MEDS: LORazepam 1 MG TAB PO PRN ×4 (00:48→19:51)
[2016-04-30] MEDS: D5W 1/2 NS W/ 20 KCl/L 1,000 ML IV SCH ×2 (04:22→15:41)
[2016-04-30 05:34] LABS: % IMMATURE GRANULYOCYTES 0.7 % (0.0-1.1); ABSOLUTE IMMATURE GRANULOCYTES 0.02 10^3/uL (0.00-0.10); ADD DIFF? NO; ADD MORPH? NO; ADD SCAN? NO; ATYPICAL LYMPHOCYTE FLAG 0 (0-99); FRAGMENT RBC FLAG 0 (0-99); HEMATOCRIT 35.2 % (40.0-51.0); HEMOGLOBIN 12.1 g/dL (13.7-17.5); INR 0.98 (0.83-1.16); LEFT SHIFT FLG 0 (0-99); LIPEMIA HEMOLYSIS FLAG 90 (0-99); MEAN CELL HEMOGLOBIN 38.5 pg (27.9-34.1); MEAN CELL HEMOGLOBIN CONCENTR. 34.4 g/dL (32.4-36.7); MEAN CELL VOLUME 112.1 fL (81.5-99.8); MEAN PLATELET VOLUME 9.6 fL (8.7-11.7); PLATELET CLUMPS FLAG 0 (0-99); PROTIME(PATIENT) 12.9 SEC (12.0-15.0); RED BLOOD CELL COUNT 3.14 10^6/uL (4.40-6.38); RED CELL DISTRIBUTION WIDTH 14.1 % (11.5-15.2)
[2016-04-30 05:42] LABS: PLATELET COUNT 41 10^3/uL (150-400)
[2016-04-30 05:52] LABS: ALANINE AMINOTRANSFERASE 60 IU/L (21-72); ALBUMIN 2.5 g/dL (3.5-5.0); ALKALINE PHOSPHATASE 75 IU/L (38-126); ANION GAP 3 mEq/L (8-16); ASPARTATE AMINOTRANSFERASE 128 IU/L (17-59); BILIRUBIN,TOTAL 1.5 mg/dL (0.1-1.4); CALCIUM 7.7 mg/dL (8.5-10.4); CARBON DIOXIDE 28 mEq/l (22-31); CHLORIDE 104 mEq/L (97-110); CREATININE 0.6 mg/dL (0.7-1.3); GLOMERULAR FILTRATION RATE > 60; GLUCOSE 117 mg/dL (70-100); MAGNESIUM 1.7 mg/dL (1.6-2.3); POTASSIUM 4.1 mEq/L (3.5-5.2); SODIUM 135 mEq/L (134-144); TOTAL PROTEIN 5.3 g/dL (6.3-8.2)
[2016-04-30 06:11] LABS: PLATELET ESTIMATE DECREASED (ADEQ)
[2016-04-30] MEDS ORDERED: MAGNESIUM SULF 1 GM/DEXTROSE 100 ML IV ONE (07:20)
[2016-04-30] MEDS: CLOPIDOGREL BISULFATE 75 MG TAB PO SCH (09:36)
[2016-04-30] MEDS: THIAMINE HCL 100 MG TAB PO SCH (09:36)
[2016-04-30] MEDS: FOLIC ACID 1 MG TAB PO SCH (09:36)
[2016-04-30] MEDS: OMEGA-3 FATTY ACIDS 1,000 MG CAP PO SCH (09:36)
[2016-04-30] MEDS: ASPIRIN EC 81 MG TAB PO SCH (09:36)
[2016-04-30] MEDS: MULTIVITAMINS 1 EACH TAB PO SCH (09:37)
[2016-04-30] MEDS: PANTOPRAZOLE SODIUM 40 MG TAB PO SCH (09:37)
[2016-04-30] MEDS: LEVOTHYROXINE 50 MCG TAB PO SCH (09:38)
--- NOTE | 2016-04-30 10:05 | HOSPPROG ---
Hospitalist Progress Note Assessment/Plan: Assessment: Patient is a 70-year-old male with history of CAD, COPD, active tobacco and alcohol use who presents to the ED after being found intoxicated in his apartment building. ED workup revealed hypoxia of unclear etiology as well as significantly elevated alcohol level. # acute alcohol intoxication now with severe weakness and tremor and withdrawal symptoms - librium was discontinued 04/29/16 due to oversedation -cont with ativan prn but try to wean since I am not certain his tremor is secondary to withdrawal given hypotension/absence of tachycardia/hallucinations - thiamine/folate/mvi -pt does not seem safe to dc home unable to ambulate or meet ADLs -vodka dc'ed now that pt expresses wishes for sobriety #tremor ddx alcohol related vs essential tremor vs undiagnosed movement disorder -I discussed the case with his PCP Dr. Oneal who has not seen him in over a year, but had referred him to see Dr. Gordon of Neuro to eval the tremor which was thought to be secondary to alcohol vs essential tremor -consider starting inderal once bp is improved -consider neuro consult if tremor is not improving #hypotension (improving) -will cont to hold abdulaziz and coreg for now # acute hypoxic respiratory failure secondary to etoh and sedation (dimer is elevated, but doubt PE) - duonebs prn - O2 via NC # active tobacco use Counseled patient on risks of chronic tobacco use. Offered nicotine patch prn. # thrombocytopenia, macrocytic anemia Likely related to chronic alcohol use. No obvious signs of bleeding, h/h is stable. Will monitor. -cont asa/plavix # CAD Patient denies any cardiac symptoms on presentation; EKG is without evidence of ischemia. Will confirm and continue home meds. # hypothyroidism (new dx) -synthroid 50mcg started 04/29 #hypokalemia/hypophosphatemia/hypomagnasemia -replace per protocol # dispo: continue inpatient status given etoh withdrawal and inability to care for himself. He will likely require SNF placement if agreeable once his withdrawal is stabilized # full code Pt is high risk given the severity of his withdrawal Subjective: still very weak. unable to feed himself Objective: Vital Signs Temp Pulse Resp BP Pulse Ox 36.6 C 77 28 H 92/58 L 99 04/30/16 07:48 04/30/16 07:48 04/30/16 07:48 04/30/16 07:48 04/30/16 07:48 Laboratory Results 04/30/16 05:19 04/30/16 05:19 04/29/16 04/30/16 05/01/16 05:59 05:59 05:59 Intake Total 1850 2925 Output Total 1 Balance 1850 2924 PT 12.9 SEC (12.0-15.0) 04/30/16 05:19 INR 0.98 (0.83-1.16) 04/30/16 05:19 gen nad cv rrr pulm clear abd soft +bs ext no edema neuro persistent resting tremor ICD10 Worksheet Patient Problems: Problems Problem Status Diagnosed Alcohol intoxication Acute COPD (chronic obstructive pulmonary disease) Acute Primary localized osteoarthritis of left hip Acute
[2016-04-30 18:13] LABS: POTASSIUM 3.9 mEq/L (3.5-5.2)
[2016-04-30] MEDS: ATORVASTATIN CALCIUM 20 MG TAB PO SCH (19:51)
[2016-05-01] MEDS: LEVOTHYROXINE 50 MCG TAB PO SCH (06:34)
[2016-05-01] MEDS: ASPIRIN EC 81 MG TAB PO SCH (09:56)
[2016-05-01] MEDS: CLOPIDOGREL BISULFATE 75 MG TAB PO SCH (09:56)
[2016-05-01] MEDS: OMEGA-3 FATTY ACIDS 1,000 MG CAP PO SCH (09:56)
[2016-05-01] MEDS: PANTOPRAZOLE SODIUM 40 MG TAB PO SCH (09:57)
[2016-05-01] MEDS: MULTIVITAMINS 1 EACH TAB PO SCH (09:57)
[2016-05-01] MEDS: THIAMINE HCL 100 MG TAB PO SCH (09:57)
[2016-05-01] MEDS: FOLIC ACID 1 MG TAB PO SCH (09:57)
--- NOTE | 2016-05-01 10:37 | HOSPPROG ---
Hospitalist Progress Note Assessment/Plan: DIAGNOSIS: # GAIT INSTABILITY, MULTIFACTORIAL, BUT LARGELY DUE TO MULTIPLE AFFECTS OF ALCOHOL AND MALNUTRITION # SEVERE INTENTION TREMOR -The patient at this point is not even able to feed himself due to this tremor, must be spoon fed # SEVERE ATAXIA, UNABLE TO STAND -this is likely all due to alcohol and nutrition issues but given the tremor will await Neurology evaluation # DYSPHAGIA REQUIRING ALTERED DIET TEXTURE # ACUTE HYPOTENSION, ETIOLOGY UNCERTAIN BUT CURRENTLY RESOLVED -he did have an elevated D-dimer, and there was hypoxemia, tachypnea and tachycardia. Difficult to rule out thromboembolic disease but he is a smoker -abdulaziz inhibitor and coreg on hold # NEW DIAGNOSIS OF HYPOTHYROIDISM, STARTED ON THERAPY April # MILD ACUTE ALCOHOLIC HEPATITIS # HYPOMAGNESEMIA, HYPOPHOSPHATEMIA # SUSPECTED VITAMIN DEFICIENCIES # ALCOHOLISM WITH ACUTE ALCOHOL INTOXICATION AT THE TIME OF ADMISSION # COPD WITH ONGOING TOBACCO ABUSE # PANCYTOPENIA FROM ALCOHOL AND NUTRITION ISSUES PLANS: -continue with fall precautions, physical occupational therapies -consultation Dr. Pace of Neurology for the tremor and ataxia -continue vitamin replacement -nutrition support, nursing staff to assist the patient with eating -the patient wishes to attempt to quit drinking so we are not giving him alcohol here at this time -alcohol and smoking cessation counseling here -electrolyte replacements ongoing -continue thyroid replacement and will increase the dose starting tomorrow SUBJECTIVE: The patient is frustrated but inability to perform simple activities of daily living No pain or discomfort Eating reasonably well but on restricted diet for dysphagia and is frustrated with that OBJECTIVE Vitals reviewed: Blood pressure is now normalized, vitals otherwise stable without fever Exam: alert oriented Severe intention tremor is present even at rest; the patient unable to perform minor activities. I observed he was unable to take a tissue from the tissue box not even able to picker packer the tissue box. He has been unable to feed himself and requires hand spoon feeding by the nursing staff skin warm dry color ok no jaundice resps not labored lungs clear BSs heart regular abd soft nondistended nontender, bowel sounds present limbs warm, no edema iv site ok Objective: Vital Signs Temp Pulse Resp BP Pulse Ox 36.4 C 83 18 119/71 93 05/01/16 07:55 05/01/16 07:55 05/01/16 07:55 05/01/16 07:55 05/01/16 07:55 Laboratory Results 04/30/16 05:19 04/30/16 17:55 04/30/16 05/01/16 05/02/16 06:59 06:59 06:59 Intake Total 2925 3365 Output Total 1 Balance 2924 3365 PT 12.9 SEC (12.0-15.0) 04/30/16 05:19 INR 0.98 (0.83-1.16) 04/30/16 05:19 ICD10 Worksheet Patient Problems: Problems Problem Status Diagnosed Alcohol intoxication Acute COPD (chronic obstructive pulmonary disease) Acute Primary localized osteoarthritis of left hip Acute
[2016-05-01 11:04] LABS: MAGNESIUM 1.7 mg/dL (1.6-2.3); POTASSIUM 4.4 mEq/L (3.5-5.2)
[2016-05-01] MEDS ORDERED: MAGNESIUM SULF 1 GM/DEXTROSE 100 ML IV ONE (13:57)
--- NOTE | 2016-05-01 14:30 | GCON ---
[f rep st] CONSULTATION INPATIENT CONSULTATION NOTE. DATE OF CONSULTATION: 05/01/2016 CHIEF COMPLAINT: Chronic alcoholism, significant tremor, and movement problems. HISTORY OF PRESENT ILLNESS: Dr. Yariel Patterson of the hospitalist service consulted Neurology for evalu ation of the patient's neurologic problems. Results of the evaluation were discussed directly with Baldomero Patterson. This is a 70-year-old male with a history of chronic alcoholism, COPD, coronary artery disease, who w as brought to the emergency room after being found in an elevator on April 26, 2016, intoxicated an d passed out. His alcohol level was quite high, and the patient reported he had been using about 1 p int of vodka over the course of that day. He has previous admissions for alcoholism. He was brought to the emergency room and eventually taken off alcohol. It did appear that he was having some withd sagar symptoms. He was placed on CIWA protocol. Now 5 days later, he does have significant problems with his arms and legs due to significant ataxic tremor, also feels weak and becomes confused easily . MEDICATIONS: Plavix 75 mg daily, ramipril, Lipitor 40, Coreg. PAST MEDICAL HISTORY: CAD following 2 stents, COPD, chronic alcohol use, chronic tobacco use. FAMILY HISTORY: CAD. SOCIAL HISTORY: Chronic alcoholism, positive tobacco use. REVIEW OF SYSTEMS: A 10-point review of systems is negative except for what was placed in the HPI. PHYSICAL EXAM: VITAL SIGNS: Blood pressure is 94/60, heart rate 85, respirations 16, satting 96% on 3 L nasal cannula, temperature 36.8 degrees Celsius. GENERAL: No acute distress. EYES: Funduscop ic exam could not visualize optic discs. LUNGS: Clear to auscultation bilaterally. No rhonchi or r yarelis. HEART: Regular rate and rhythm. No murmurs. No carotid bruits auscultated. NEUROLOGIC: Men guille status: He is alert and oriented to person and place but not date. He does appear to become con fused easily though. Language is normal. Fund of knowledge and memory are difficult to test, and ce rtainly there does appear to be some impairment, although the patient was not able to participate in in-depth mental status testing. Cranial nerves: Pupils equal, round, and reactive to light. Visual hendrickson appear full, though at one point he had difficulty counting my fingers but further testing fo und no evidence of any visual field defect. Extraocular muscles intact, but his eye movements are ve ry saccadic. He does have problems with smooth eye pursuit following my finger, although there is no t any palsy or any direction he cannot move. Bilateral facies intact to sensation and motor movement . Hearing intact to conversation. Uvula raises symmetrically. Tongue protrudes midline. He does a ppear to have an intention tremor of his chin as well as a tremor at times of his tongue with movemen ts. He has a problem talking. This is all consistent with cerebellar dysfunction, in my opinion. M otor exam: Decreased tone in all 4 extremities. Strength appears grossly intact in all 4 extremitie s, may possibly globally 4+/5 but no focal weakness. Sensory exam: All 4 extremities intact to ligh t touch. Reflexes: Bilateral brachioradialis 1/4, bilateral patellae absent. Coordination: Bilate ral rapid altered movements, [id number], and [id number]-ra-rhym are significantly impaired symmetricall y. He appears to have cerebellar ataxia in his arms, legs, eyes, and tongue with movement, being kathy y ataxic and discoordinated. He also has problems fully moving the hands in certain areas, not due t o lack of strength but more likely due to cerebellar and proprioceptive degeneration, in my opinion. Gait deferred. LABS: On April 30, 2016, CBC shows a white blood cell count of 2.69, hematocrit of 35.2, platelets of 41. CMP shows a creatinine of 0.6, glucose 117, calcium 7.7, total bilirubin 1.5, AST 128, total protein 5.3, albumin 2.5. On April 27, 2016, free T3 and free T4 were both low and TSH was very h igh. IMAGING: On April 26, 2016, a head CT shows stable mild atrophy. No hemorrhage, no mass effect, n o definite acute peripheral infarct, and stable mild microvascular ischemic changes. I personally vi sualized this study. ASSESSMENT: 1. Alcoholism: The patient's problems moving his arms and legs, global mild weakness, and his easil y confused ability are most likely from his chronic alcoholism. He may still have some elements of a cute alcohol withdrawal causing his tremor to be slightly hyper autonomic, although his primary probl ems appear to be cerebellar issues in his entire body as well as signs of peripheral neuropathy in hi s legs. He likely also has significant malnutrition due to neglecting proper vitamin use. At this p oint, I would recommend total alcohol cessation, a good healthy diet, and working in a rehab facility . I suspect he will have a significant recovery, although it is impossible to say if he will have co mplete recovery or not. I certainly believe if he cannot stop using alcohol, it will likely lead to an early and continued disability. He does hypothyroidism, and that certainly could exacerbate weakness and tremor and should be treated in addition. 2. Hypothyroidism. RECOMMENDATIONS: 1. Alcohol cessation. 2. Healthy diet. 3. Ideally, inpatient rehab and therapeutic lifestyle would be beneficial. 4. Outpatient Alcoholic Anonymous or other cessation group is critical for this patient. No further neurologic workup needed. Neurology will be happy to get re-involved if needed. Roxanne savage, the patient is welcome to come and see me in the clinic if I can be of any further benefit after h e is discharged. /[id number]/MODL
[2016-05-01] MEDS: ATORVASTATIN CALCIUM 20 MG TAB PO SCH (20:13)
[2016-05-01] MEDS: HYDROCODONE/APAP 5/325 TAB PO PRN (20:13)
[2016-05-02] MEDS: HYDROCODONE/APAP 5/325 TAB PO PRN ×2 (01:54→21:19)
[2016-05-02] MEDS: LORazepam 1 MG TAB PO PRN ×2 (01:54→21:20)
[2016-05-02] MEDS: LEVOTHYROXINE 50 MCG TAB PO SCH (05:26)
[2016-05-02 07:51] LABS: MAGNESIUM 1.6 mg/dL (1.6-2.3); POTASSIUM 3.9 mEq/L (3.5-5.2)
[2016-05-02] MEDS ORDERED: POTASSIUM CL 10 MEQ TAB PO ONE (08:22)
[2016-05-02] MEDS ORDERED: MAGNESIUM SULF 1 GM/DEXTROSE 100 ML IV ONE (09:07)
[2016-05-02] MEDS: OMEGA-3 FATTY ACIDS 1,000 MG CAP PO SCH (11:21)
[2016-05-02] MEDS: CLOPIDOGREL BISULFATE 75 MG TAB PO SCH (11:21)
[2016-05-02] MEDS: FOLIC ACID 1 MG TAB PO SCH (11:21)
[2016-05-02] MEDS: MULTIVITAMINS 1 EACH TAB PO SCH (11:21)
[2016-05-02] MEDS: PANTOPRAZOLE SODIUM 40 MG TAB PO SCH (11:22)
[2016-05-02] MEDS: ASPIRIN EC 81 MG TAB PO SCH (11:22)
[2016-05-02] MEDS: THIAMINE HCL 100 MG TAB PO SCH (11:22)
--- NOTE | 2016-05-02 17:22 | HOSPPROG ---
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 -this is likely all due to alcohol and nutrition issues but given the tremor will await Neurology evaluation # DYSPHAGIA REQUIRING ALTERED DIET TEXTURE # ACUTE HYPOTENSION, ETIOLOGY UNCERTAIN BUT CURRENTLY RESOLVED # NEW DIAGNOSIS OF HYPOTHYROIDISM, STARTED ON THERAPY April # MILD ACUTE ALCOHOLIC HEPATITIS # HYPOMAGNESEMIA, HYPOPHOSPHATEMIA # SUSPECTED VITAMIN DEFICIENCIES # ALCOHOLISM WITH ACUTE ALCOHOL INTOXICATION AT THE TIME OF ADMISSION # COPD WITH ONGOING TOBACCO ABUSE # PANCYTOPENIA FROM ALCOHOL AND NUTRITION ISSUES PLANS: -continue with fall precautions, physical occupational therapies -continue vitamin replacement -nutrition support, nursing staff to assist the patient with eating -the patient wishes to attempt to quit drinking so we are not giving him alcohol here at this time -alcohol and smoking cessation counseling here -electrolyte replacements ongoing -continue thyroid replacement will increase the dose today SUBJECTIVE: feels better today and notices a little bit less in the way of ataxic difficulties, but still unable to feed himself and having trouble staying hydrated as he can drink water on his own. Still unable to stand or walk independently no other symptoms at this time. OBJECTIVE Vitals reviewed: Blood pressure is now normalized, vitals otherwise stable without fever Exam: alert oriented he still has cerebellar ataxia but it is slightly improved from yesterday. skin warm dry color ok no jaundice resps not labored lungs clear BSs heart regular abd soft nondistended nontender, bowel sounds present limbs warm, no edema iv site ok Objective: Vital Signs Temp Pulse Resp BP Pulse Ox 36.4 C 83 18 92/50 L 94 05/02/16 16:25 05/02/16 16:25 05/02/16 16:25 05/02/16 12:29 05/02/16 16:25 Laboratory Results 04/30/16 05:19 05/02/16 07:14 05/01/16 05/02/16 05/03/16 06:59 06:59 06:59 Intake Total 3365 350 180 Output Total 450 100 Balance 3365 -100 80 PT 12.9 SEC (12.0-15.0) 04/30/16 05:19 INR 0.98 (0.83-1.16) 04/30/16 05:19 ICD10 Worksheet Patient Problems: Problems Problem Status Diagnosed Alcohol intoxication Acute COPD (chronic obstructive pulmonary disease) Acute Primary localized osteoarthritis of left hip Acute
[2016-05-02] MEDS ORDERED: NS 1,000 ML IV SCH (18:30)
[2016-05-02] MEDS ORDERED: NICOTINE POLACRILEX 2 MG GUM B PRN (19:20)
[2016-05-02] MEDS: ATORVASTATIN CALCIUM 20 MG TAB PO SCH (21:14)
[2016-05-03] MEDS: HYDROCODONE/APAP 5/325 TAB PO PRN (04:02)
[2016-05-03] MEDS: LORazepam 1 MG TAB PO PRN (04:02)
[2016-05-03] MEDS ORDERED: LEVOTHYROXINE 75 MCG TAB PO SCH (06:00)
[2016-05-03] MEDS: PANTOPRAZOLE SODIUM 40 MG TAB PO SCH (10:25)
[2016-05-03] MEDS: THIAMINE HCL 100 MG TAB PO SCH (10:25)
[2016-05-03] MEDS: FOLIC ACID 1 MG TAB PO SCH (10:25)
[2016-05-03] MEDS: ASPIRIN EC 81 MG TAB PO SCH (10:25)
[2016-05-03] MEDS: MULTIVITAMINS 1 EACH TAB PO SCH (10:25)
[2016-05-03] MEDS: CLOPIDOGREL BISULFATE 75 MG TAB PO SCH (10:25)
[2016-05-03] MEDS: OMEGA-3 FATTY ACIDS 1,000 MG CAP PO SCH (10:25)
--- NOTE | 2016-05-03 10:25 | PDIAF ---
- Diagnosis Diagnosis: Cerebellar Ataxia/Alcoholism/malnutrition/new diagsosis of hypothyroidism Code Status: Full Code - Medication Management Discharge Medications: Medications to Continue on Transfer Clopidogrel Bisulfate [Plavix (*)] 75 mg PO DAILY 12/20/13 [Last Taken 02/04/15 08:00] Ramipril [Altace 5mg (*)] 5 mg PO DAILY 12/20/13 [Last Taken 02/11/15 08:00] Carvedilol [Coreg (*)] 6.25 mg PO BIDMEAL 02/12/15 [Last Taken 02/11/15 08:00] Aspirin EC [Aspirin EC 81 mg (*)] 81 mg PO DAILY #100 tab 02/13/15 [Last Taken Unknown] Folic Acid [Folic Acid 1 MG (*)] 1 mg PO DAILY #0 tab 04/27/16 [Last Taken Unknown] Multivitamins [Multivitamin (*)] 1 each PO DAILY #0 tab 04/27/16 [Last Taken Unknown] Rebuck-3 Fatty Acids [Fish Oil 1000 mg (*)] 1,000 mg PO DAILY 04/27/16 [Last Taken Unknown] Simvastatin [Zocor] 40 mg PO HS 04/27/16 [Last Taken Unknown] Thiamine HCl [Vitamin B-1] 100 mg PO DAILY #0 tab 04/27/16 [Last Taken Unknown] Levothyroxine [Synthroid 75 mcg (*)] 75 mcg PO DAILY AT 6AM #0 tab 05/03/16 [ Last Taken Unknown] Nicotine Polacrilex [Nicorette gum (*)] 2 mg B PRN PRN #0 gum 05/03/16 [Last Taken Unknown] Discharge Medications: Refer to the Discharge Home Medication list for PRN reason. - Orders Services needed: Registered Nurse, Certified Scooper, Master Flamer After Lasting , Physical Therapy, Occupational Therapy Diet Recommendation: no restrictions on diet Diet Texture: Dysphagia 3 - Advanced - Moist, Bite-Size, Thin Liquids, Meds Whole in Puree Activity/Weight Bearing Restrictions: HIGH FALL RISK Additional: THE PATIENT WILL NEED TSH TESTING IN 6 WEEKS HE IS NEWLY STARTED ON THYROID REPLACEMENT MEDICATION - Labs/Radiology Other Lab Name, Date and Time: TSH needs to be done approximately June 14 for new thyroid prescription - Follow Up Care
--- NOTE | 2016-05-03 10:37 | PDDCSUM ---
Discharge Summary Discharge Summary: DISCHARGE DIAGNOSES: # GAIT INSTABILITY, MULTIFACTORIAL, BUT LARGELY DUE TO MULTIPLE AFFECTS OF ALCOHOL AND MALNUTRITION # SEVERE CEREBELLAR ATAXIA, UNABLE TO STAND OR FEED SELF -this is likely all due to alcohol and nutrition issues but given the tremor will await Neurology evaluation # DYSPHAGIA REQUIRING ALTERED DIET TEXTURE # NEW DIAGNOSIS OF HYPOTHYROIDISM, STARTED ON THERAPY April # MILD ACUTE ALCOHOLIC HEPATITIS # HYPOMAGNESEMIA, HYPOPHOSPHATEMIA # SUSPECTED VITAMIN DEFICIENCIES # ALCOHOLISM WITH ACUTE ALCOHOL INTOXICATION AT THE TIME OF ADMISSION # COPD WITH ONGOING TOBACCO ABUSE # PANCYTOPENIA FROM ALCOHOL AND NUTRITION ISSUES CONSULTANTS: Dr. Gordon of Neurology PROCEDURES: CT scan of head noncontrast with no acute abnormal findings HOSPITAL COURSE SUMMARY: This patient known to us from prior admissions for alcoholism and withdrawal, comes in at this time unable to stand or walk when he was found by residence at his apartment building on the floor. He is identified as having severe cerebellar ataxia which is severely debilitating. He is at the time of admission unable to stand or walk, unable to feed himself with a spoon or fork, unable to drink from a cup, or perform other simple activities of daily living. CT scan showed no acute abnormalities or other causes of his symptoms. He was admitted the hospital and treated with vitamin replacement therapy. He has also had physical occupational and speech therapies. There has been some improvement and he is now ambulating with assistance and a walker but still having trouble feeding himself. He cannot dress himself. The patient's prognosis for recovery seems reasonable if he is able to avoid alcohol and continue with good nutrition. However there is very high risk of failure to recover if he does not have good nutrition or if he does not participate in therapies. If he goes back to drinking alcohol he will certainly slipped back easily into severe debilitating ataxia. At this point he is medically stable for discharge from hospital but is severely disabled and will need ongoing rehabilitation at long term facility. He received extensive alcohol cessation counseling here in the hospital. Given his response in conversation during counseling it is estimated that he has a poor chance of long-term alcohol recovery but he is interested in wants to give it a try. He should receive ongoing counseling and be referred to outpatient support groups as an outpatient. It is strongly recommended that he not be allowed to have alcohol in long term facility. MEDICATION CHANGES: Addition of levothyroxine 75 mcg daily, and this will need repeat TSH testing in mid May having started April 29 FOLLOW-UP PLAN: due to severe ataxia, gait instability with fall risk, and inability to perform activities of daily living the patient is transferred from the hospital to long term facility for further rehabilitation Greater than 35 minutes bedside and care coordination time today
[2016-05-03 11:40] VITALS: BP 120/70; PULSE 77; RESP 17; TEMP 97.5; O2SAT 93
--- NOTE | 2016-05-06 10:34 | PQFORM ---
PHYSICIAN QUERY FORM Needs Your Response This query form is being sent to you to assure this patient record is coded properly. 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 Patterson, It is stated in the H&P as well as the Hospitalist progress notes dated 04/27- 04/30 that this patient had the diagnosis of 'Acute respiratory failure w/ hypoxia '. H&P states patient is 'hypoxic on room air and did not improve with nebs.' Patient also has the diagnosis of COPD. After study, should the diagnosis of ' acute respiratory failure w/hypoxia' be included in the Discharge Summary? Yes No Other more appropriate diagnosis Unable to determine Thank you [facility] [phone] INSTRUCTIONS FOR RESPONSE: Answer question by clicking on the "Edit Document" button. Move cursor to area below the stars. When complete, hit "Save." Click on the "Sign" button, then click "Sign" again. Type in your PIN and hit "Enter." metabolic acidosis was present MTDD
--- NOTE | 2016-05-18 16:01 | PQFORM ---
PHYSICIAN QUERY FORM Needs Your Response This query form is being sent to you to assure this patient record is coded properly. 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 Patterson, It is stated in the H&P as well as the Hospitalist progress notes dated 04/27- 04/30 that this patient had the diagnosis of 'Acute respiratory failure w/ hypoxia '. H&P states patient is 'hypoxic on room air and did not improve with nebs.' Patient also has the diagnosis of COPD. After study, should the diagnosis of ' acute diagnosis of 'acute respiratory failure w/ hypoxia' be included in the Discharge summary? Please document your response without deleting any of the text below. YES NO Other more appropriate diagnosis Unable to determine Thank you [facility] [phone] INSTRUCTIONS FOR RESPONSE: Answer question by clicking on the "Edit Document" button. Move cursor to area below the stars. When complete, hit "Save." Click on the "Sign" button, then click "Sign" again. Type in your PIN and hit "Enter." yes MTDD
== END 2016-05-03 16:15 | DRG 896 ==
LOC: EDUNIT# → F1N 04-27 03:04 → OBSVTOIN 04-28 11:39
PROVIDERS: ADMIT Internal Medicine; ATTEND Internal Medicine
DX: F10.221 Alcohol dependence with intoxication delirium (principal); J96.01 Acute respiratory failure with hypoxia; E46 Unspecified protein-calorie malnutrition; D61.818 Other pancytopenia; F10.239 Alcohol dependence with withdrawal, unspecified; Y90.8 Blood alcohol level of 240 mg/100 ml or more; J44.9 Chronic obstructive pulmonary disease, unspecified; I25.10 Atherosclerotic heart disease of native coronary artery without angina pectoris; Z72.0 Tobacco use; G62.9 Polyneuropathy, unspecified; E03.9 Hypothyroidism, unspecified; E87.6 Hypokalemia; E83.89 Other disorders of mineral metabolism; E83.42 Hypomagnesemia; G31.2 Degeneration of nervous system due to alcohol; R13.10 Dysphagia, unspecified; K70.10 Alcoholic hepatitis without ascites
CPT/HCPCS: 80305; 84481-90; 92526-GN; 92610-GN; 97116-GP; 97162-GP; 97166-GO; 97530-GO; 97530-GP; G0378; G0480; G8978-GP-CM; G8979-GP-CI; G8987-GO-CM; G8988-GO-CJ; G8996-GN-CK; G8997-GN-CI; J2060; J3475

== ENCOUNTER 2016-08-25 19:57 | Emergency (ER) | payer OTHER, MEDICAID ==
[2016-08-25] MEDS ORDERED: NS 1,000 ML IV ONE (20:05)
[2016-08-25 20:14] LABS: % IMMATURE GRANULYOCYTES 1.2 % (0.0-1.1); ABSOLUTE IMMATURE GRANULOCYTES 0.06 10^3/uL (0.00-0.10); ABSOLUTE NRBC COUNT 0.03 10^3/uL (0-0.01); ADD DIFF? NO; ADD MORPH? NO; ADD SCAN? NO; ATYPICAL LYMPHOCYTE FLAG 0 (0-99); FRAGMENT RBC FLAG 0 (0-99); HEMOGLOBIN 12.6 g/dL (13.7-17.5); LEFT SHIFT FLG 10 (0-99); LIPEMIA HEMOLYSIS FLAG 90 (0-99); MEAN CELL HEMOGLOBIN 37.8 pg (27.9-34.1); MEAN CELL VOLUME 108.1 fL (81.5-99.8); MEAN PLATELET VOLUME 10.2 fL (8.7-11.7); NRBC-AUTO% 0.6 % (0.0-0.2); PLATELET CLUMPS FLAG 0 (0-99); PLATELET COUNT 61 10^3/uL (150-400); RED BLOOD CELL COUNT 3.33 10^6/uL (4.40-6.38); RED CELL DISTRIBUTION WIDTH 13.8 % (11.5-15.2)
[2016-08-25 20:18] LABS: ALANINE AMINOTRANSFERASE 106 IU/L (21-72); ALBUMIN 4.1 g/dL (3.5-5.0); ALKALINE PHOSPHATASE 132 IU/L (38-126); ANION GAP 21 mEq/L (8-16); ASPARTATE AMINOTRANSFERASE 310 IU/L (17-59); BILIRUBIN,TOTAL 4.6 mg/dL (0.1-1.4); BILIRUBIN-CONJUGATED 2.7 mg/dL (0.0-0.5); BILIRUBIN-UNCONJUGATED 1.9 mg/dL (0.0-1.1); CALCIUM 9.1 mg/dL (8.5-10.4); CARBON DIOXIDE 23 mEq/l (22-31); CHLORIDE 96 mEq/L (97-110); CREATININE 0.8 mg/dL (0.7-1.3); GLOMERULAR FILTRATION RATE > 60; GLUCOSE 119 mg/dL (70-100); POTASSIUM 3.9 mEq/L (3.5-5.2); SODIUM 140 mEq/L (134-144); TOTAL PROTEIN 6.6 g/dL (6.3-8.2)
[2016-08-25 20:31] LABS: INR 0.98 (0.83-1.16); PROTIME(PATIENT) 12.9 SEC (12.0-15.0)
[2016-08-25 20:32] LABS: APTT 31.2 SEC (23.0-38.0)
--- NOTE | 2016-08-25 20:44 | EDPHY ---
H & P Stated Complaint: etoh Time Seen by Provider: 08/25/16 20:43 HPI/ROS: CHIEF COMPLAINT: Failure to thrive, alcohol withdrawal, tremor HISTORY OF PRESENT ILLNESS: The patient presents to the emergency department tonight by paramedics. Apparently the police were contacted and evaluated the patient in his apartment. The patient was found to be living in [facility] and covered in feces. They apparently [facility] to [facility] but he was declined admission there secondary to his inability to ambulate and significant tremor. The patient was then referred to the ED for further evaluation. In the emergency department, the patient is a difficult historian. He does report chronic daily alcohol use. The patient denies acute complaints of pain, he reportedly has been falling. He has no complaints of melena, fever, dysuria or cough. The patient has been admitted to our hospital in the past for similar symptoms of failure to thrive in incontinence. The patient reports he takes no medications. It is uncertain whether he has regular follow-up with the primary care provider. REVIEW OF SYSTEMS: A comprehensive 10 point review of systems is otherwise negative aside from elements mentioned in the history of present illness. Source: Patient Exam Limitations: No limitations - Medical/Surgical History Hx Asthma: Yes Hx Chronic Respiratory Disease: No Hx Diabetes: No Hx Cardiac Disease: Yes Hx Renal Disease: No Hx Cirrhosis: No Hx Alcoholism: Yes Hx HIV/AIDS: No Hx Splenectomy or Spleen Trauma: No Other PMH: PMH- HTN, HLD, CAD, ASTHMA CHILD, ETOH. PSH- CARDIAC STENT X1 - Social History Smoking Status: Current every day smoker - Physical Exam Exam: General Appearance: Elderly male, disheveled, covered in feces Eyes: Pupils equal and round no pallor or injection ENT, Mouth: Dry mucous membranes Respiratory: There are no retractions, lungs are clear to auscultation Cardiovascular: Tachycardic Gastrointestinal: Abdomen is soft and nontender, no masses, bowel sounds normal Neurological: Alert and oriented x3, tremulous, no focal deficits appreciated on exam Skin: Warm and dry, no rashes Musculoskeletal: Neck is supple nontender Extremities: symmetrical, full range of motion Psychiatric: Patient is oriented X 3, there is no agitation Constitutional: Initial Vital Signs Temperature (C) 37.5 C 08/25/16 20:05 Heart Rate 104 H 08/25/16 20:05 Respiratory Rate 16 08/25/16 20:05 Blood Pressure 97/62 L 08/25/16 20:05 O2 Sat (%) 94 08/25/16 20:05 O2 Delivery Mode Room Air O2 (L/minute) 8 Allergies/Adverse Reactions: No Known Allergies Allergy (Unverified 12/10/13 12:35) Home Medications: Medication Instructions Recorded Clopidogrel Bisulfate [Plavix (*)] 75 mg PO DAILY 12/20/13 Ramipril [Altace 5mg (*)] 5 mg PO DAILY 12/20/13 Carvedilol [Coreg (*)] 6.25 mg PO BIDMEAL 02/12/15 Aspirin EC [Aspirin EC 81 mg (*)] 81 mg PO DAILY #100 tab 02/13/15 Folic Acid [Folic Acid 1 MG (*)] 1 mg PO DAILY #0 tab 04/27/16 Multivitamins [Multivitamin (*)] 1 each PO DAILY #0 tab 04/27/16 [facility]-3 Fatty Acids [Fish Oil 1000 1,000 mg PO DAILY 04/27/16 mg (*)] Simvastatin [Zocor] 40 mg PO HS 04/27/16 Thiamine HCl [Vitamin B-1] 100 mg PO DAILY #0 tab 04/27/16 Levothyroxine [Synthroid 75 mcg 75 mcg PO DAILY AT 6AM #0 tab 05/03/16 (*)] Nicotine Polacrilex [Nicorette gum 2 mg B PRN PRN #0 gum 05/03/16 (*)] Medical Decision Making ED Course/Re-evaluation: The patient is tremulous and slightly tachycardic. The patient had an IV established. He received 2 mg of Ativan. The patient was covered in feces. His closing was removed. The patient was cleaned and placed in a hospital gown. The patient received IV fluid hydration. I reviewed his past medical records including his hospitalization from March of 2016. 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 The patient has a known history of chronic ataxia. It appears during his last hospitalization the patient did require a walker to ambulate. The patient is clearly quite quite complicated in terms of his psychosocial situation. It is difficult to distinguish what is symptoms of withdrawal from his chronic cerebellar insufficiency. The patient is unable discharged back to his home in his current state. He will require admission to the hospital. We currently have no inpatient beds available. I spoke with Dr. Luna the hospitalist [facility] and reviewed the patient's case. He has accepted the patient for admission to a medical-surgical bed. The patient is noted to have changes on his CVC consistent with his chronic alcoholism including macrocytosis and thrombocytopenia. Differential Diagnosis: Differential diagnosis considered includes dehydration, metabolic abnormality, alcohol intoxication, alcohol withdrawal, failure to thrive - Data Points Laboratory Results: Laboratory Results 08/25/16 19:50 08/25/16 19:50 08/25/16 08/25/16 08/25/16 19:50 19:50 19:50 WBC 4.84 10^3/uL 10^3/uL (3.80-9.50) RBC 3.33 10^6/uL L 10^6/uL (4.40-6.38) Hgb 12.6 g/dL L g/dL (13.7-17.5) Hct 36.0 % L % (40.0-51.0) MCV 108.1 fL H fL (81.5-99.8) MCH 37.8 pg H pg (27.9-34.1) MCHC 35.0 g/dL g/dL (32.4-36.7) RDW 13.8 % % (11.5-15.2) Plt Count 61 10^3/uL L 10^3/uL (150-400) MPV 10.2 fL fL (8.7-11.7) Neut % (Auto) 54.5 % % (39.3-74.2) Lymph % (Auto) 32.4 % % (15.0-45.0) [place] % (Auto) 9.7 % % (4.5-13.0) Eos % (Auto) 0.8 % % (0.6-7.6) Baso % (Auto) 1.4 % % (0.3-1.7) Nucleat RBC Rel Count 0.6 % H % (0.0-0.2) Absolute Neuts (auto) 2.63 10^3/uL 10^3/uL (1.70-6.50) Absolute Lymphs (auto) 1.57 10^3/uL 10^3/uL (1.00-3.00) Absolute Monos (auto) 0.47 10^3/uL 10^3/uL (0.30-0.80) Absolute Eos (auto) 0.04 10^3/uL 10^3/uL (0.03-0.40) Absolute Basos (auto) 0.07 10^3/uL 10^3/uL (0.02-0.10) Absolute Nucleated RBC 0.03 10^3/uL H 10^3/uL (0-0.01) Immature Gran % 1.2 % H % (0.0-1.1) Immature Gran # 0.06 10^3/uL 10^3/uL (0.00-0.10) PT 12.9 SEC SEC (12.0-15.0) INR 0.98 (0.83-1.16) APTT 31.2 SEC SEC (23.0-38.0) Sodium 140 mEq/L mEq/L (134-144) Potassium 3.9 mEq/L mEq/L (3.5-5.2) Chloride 96 mEq/L L mEq/L (97-110) Carbon Dioxide 23 mEq/l mEq/l (22-31) Anion Gap 21 mEq/L H mEq/L (8-16) BUN 19 mg/dL mg/dL (7-23) Creatinine 0.8 mg/dL mg/dL (0.7-1.3) Estimated GFR > 60 Glucose 119 mg/dL H mg/dL (70-100) Calcium 9.1 mg/dL mg/dL (8.5-10.4) Total Bilirubin 4.6 mg/dL H mg/dL (0.1-1.4) Conjugated Bilirubin 2.7 mg/dL H mg/dL (0.0-0.5) Unconjugated Bilirubin 1.9 mg/dL H mg/dL (0.0-1.1) AST 310 IU/L H IU/L (17-59) ALT 106 IU/L H IU/L (21-72) Alkaline Phosphatase 132 IU/L H IU/L (38-126) Total Protein 6.6 g/dL g/dL (6.3-8.2) Albumin 4.1 g/dL g/dL (3.5-5.0) Lipase 296.0 IU/L IU/L (23-300) Medications Given: Discontinued Medications Folic Acid (Folic Acid) 1 mg PO EDNOW ONE Stop: 08/25/16 20:47 Last Admin: 08/25/16 21:00 Dose: 1 mg Sodium Chloride (Ns) 1,000 mls @ 0 mls/hr IV ONCE ONE PRN Reason: Wide Open Stop: 08/25/16 20:06 Last Admin: 08/25/16 20:26 Dose: 1,000 mls Lorazepam (Ativan Injection) 1 mg IVP EDNOW ONE Stop: 08/25/16 20:47 Last Admin: 08/25/16 21:00 Dose: 1 mg Thiamine HCl (Vitamin B-1) 100 mg PO EDNOW ONE Stop: 08/25/16 20:47 Last Admin: 08/25/16 21:00 Dose: 100 mg Departure - Departure Disposition: Acute Care Hospital [facility] Clinical Impression: Alcohol dependence, COPD (chronic obstructive pulmonary disease), Alcohol withdrawal, 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
[2016-08-25] MEDS ORDERED: LORazepam 2 MG/ML INJ IVP ONE ×2 (20:46→22:55)
[2016-08-25] MEDS ORDERED: FOLIC ACID 1 MG TAB PO ONE (20:46)
[2016-08-25] MEDS ORDERED: THIAMINE HCL 100 MG TAB PO ONE (20:46)
[2016-08-26 04:19] VITALS: BP 106/53; PULSE 88; RESP 16; TEMP 98.1; O2SAT 97
== END 2016-08-26 00:23 | disposition short-term general hospital (02) ==
LOC: EDUNIT#
DX: F10.239 Alcohol dependence with withdrawal, unspecified (principal); J44.9 Chronic obstructive pulmonary disease, unspecified; G11.9 Hereditary ataxia, unspecified; I10 Essential (primary) hypertension; I25.10 Atherosclerotic heart disease of native coronary artery without angina pectoris; F17.200 Nicotine dependence, unspecified, uncomplicated; Z79.82 Long term (current) use of aspirin; Z95.5 Presence of coronary angioplasty implant and graft
CPT/HCPCS: 96361; 96374; 99285; J2060

== ENCOUNTER 2017-02-25 11:50 | Emergency (ER) | payer OTHER, MEDICAID ==
[2017-02-25 12:01] VITALS: TEMP 98.6
--- NOTE | 2017-02-25 13:16 | CPEKG ---
Heart Rate: 79 RR Interval: 759 P-R Interval: 188 QRSD Interval: 100 QT Interval: 428 QTC Interval: 491 P Webb: 85 QRS Webb: 86 T Wave Webb: -45 EKG Severity - ABNORMAL ECG - EKG Impression: SINUS RHYTHM EKG Impression: LOW VOLTAGE WITH RIGHT AXIS DEVIATION EKG Impression: BORDERLINE T ABNORMALITIES, INFERIOR LEADS EKG Impression: BORDERLINE PROLONGED QT INTERVAL Electronically Signed By: Govind Landa 25-Feb-2017 13:29:36
[2017-02-25 13:17] LABS: % IMMATURE GRANULYOCYTES 0.9 % (0.0-1.1); ABSOLUTE IMMATURE GRANULOCYTES 0.03 10^3/uL (0.00-0.10); ABSOLUTE NRBC COUNT 0.02 10^3/uL (0-0.01); ADD DIFF? NO; ADD MORPH? NO; ADD SCAN? NO; ATYPICAL LYMPHOCYTE FLAG 0 (0-99); FRAGMENT RBC FLAG 0 (0-99); HEMATOCRIT 35.8 % (40.0-51.0); HEMOGLOBIN 12.7 g/dL (13.7-17.5); LEFT SHIFT FLG 10 (0-99); LIPEMIA HEMOLYSIS FLAG 90 (0-99); MEAN CELL HEMOGLOBIN 40.3 pg (27.9-34.1); MEAN CELL HEMOGLOBIN CONCENTR. 35.5 g/dL (32.4-36.7); MEAN CELL VOLUME 113.7 fL (81.5-99.8); MEAN PLATELET VOLUME 9.4 fL (8.7-11.7); NRBC-AUTO% 0.6 % (0.0-0.2); PLATELET CLUMPS FLAG 0 (0-99); PLATELET COUNT 50 10^3/uL (150-400); RED BLOOD CELL COUNT 3.15 10^6/uL (4.40-6.38); RED CELL DISTRIBUTION WIDTH 14.7 % (11.5-15.2)
--- NOTE | 2017-02-25 13:25 | EDPHY ---
H & P Time Seen by Provider: 02/25/17 12:45 HPI/ROS: CHIEF COMPLAINT: I have a case of vertigo HISTORY OF PRESENT ILLNESS: This 71-year-old man has been by friend Quincy because he went unconscious and passed out at home. The patient tells me has had been having dizziness when he stands up for the past 6 months but he really when prep know how long it has been going on. His friend brought him in because he found home after having drunk a lot of vodka. The patient has frequent alcohol use but does not know his last drink was. He describes feeling fine at rest when he gets up he has a mild sense of loss of balance. He states that the symptoms are persistent and mild of and have not resulted in him falling down or having trouble walking at all. Not associated with seizure disorder visual symptoms. He is moderately tremulous. REVIEW OF SYSTEMS: Eye: no change in vision ENT: no sore throat Cardiac: no chest pain or syncope Pulmonary: no cough or SOB Abdomen: no vomiting, diarrhea, abdominal pain Musculoskeletal: no back pain Skin: no rash Neuro: no headache Constitutional: no fever : no urinary symptoms A comprehensive 10 point review of systems is otherwise negative aside from elements mentioned in the history of present illness. PAST MEDICAL HISTORY: Includes hypertension, coronary disease, hyperlipidemia and alcoholism 2 stents. Social history: . Recent alcohol, specifically vodka, ingestion General Appearance: Alert and conversant, cooperative. Eyes: No scleral icterus. ENT, Mouth: Normal mucous membranes. Respiratory: Normal respiratory effort, breath sounds equal, lungs are clear to auscultation. Speaks full sentences. Cardiovascular: Regular rate and rhythm. Gastrointestinal: Abdomen is soft and non tender. Neurological: Alert and oriented x person, [facility], and and February but not date. Normally conversant. Face symmetric, normal movement and sensation in all extremities. Hmvhud-vk-pvgsxamrph tremulous, finger 2 nose normal bilaterally. Skin: Warm and dry, no rashes. Musculoskeletal: No peripheral edema and no joint swelling. Psychiatric: Not agitated. Patient is oxygen saturation in the low to mid 90s on pulse oximetry while I am examining him personally. Emergency Department course/MDM: Noncontrast CT, EKG, labs to include alcohol level and electrolytes. 1527: ambulatory Librium 50 mg orally. Patient is not ataxic. He is ambulatory to the bathroom without assistance. He states he does not want to stop drinking. He has no respiratory symptoms and is not short of breath. Speaks in full sentences still. He states he does not want to go to detox. He tells me that he is recently homeless because he was evicted from his living situation. Case management to see. 1542: Negative head CT except for atrophy per Dr. Piedra. Smoking Status: Current every day smoker Constitutional: Initial Vital Signs Temperature (C) 37 C 02/25/17 11:58 Heart Rate 96 02/25/17 11:58 Respiratory Rate 18 02/25/17 11:58 Blood Pressure 113/92 H 02/25/17 11:58 O2 Sat (%) 91 L 02/25/17 11:58 O2 Delivery Mode Room Air Allergies/Adverse Reactions: No Known Allergies Allergy (Unverified 12/10/13 12:35) Home Medications: Medication Instructions Recorded Clopidogrel Bisulfate [Plavix (*)] 75 mg PO DAILY 12/20/13 Ramipril [Altace 5mg (*)] 5 mg PO DAILY 12/20/13 Carvedilol [Coreg (*)] 6.25 mg PO BIDMEAL 02/12/15 Aspirin EC [Aspirin EC 81 mg (*)] 81 mg PO DAILY #100 tab 02/13/15 Folic Acid [Folic Acid 1 MG (*)] 1 mg PO DAILY #0 tab 04/27/16 Multivitamins [Multivitamin (*)] 1 each PO DAILY #0 tab 04/27/16 [place]-3 Fatty Acids [Fish Oil 1000 1,000 mg PO DAILY 04/27/16 mg (*)] Simvastatin [Zocor] 40 mg PO HS 04/27/16 Thiamine HCl [Vitamin B-1] 100 mg PO DAILY #0 tab 04/27/16 Levothyroxine [Synthroid 75 mcg 75 mcg PO DAILY AT 6AM #0 tab 05/03/16 (*)] Nicotine Polacrilex [Nicorette gum 2 mg B PRN PRN #0 gum 05/03/16 (*)] Medical Decision Making - Diagnostics EKG Interpretation: 12-lead EKG interpreted by me; official reading is in trace master. My interpretation is sinus rhythm with low voltage and nonspecific inferior T-wave flattening. Imaging Results: Imaging Impressions Head CT 02/25/17 14:15 Impression: Atrophy and microvascular ischemic disease. Nothing acute. Findings and recommendations discussed with LOYDA LI at 1542 hour, 2016. Final report concurs with initial preliminary interpretation. - Data Points Laboratory Results: Laboratory Results 02/25/17 13:08 02/25/17 13:08 02/25/17 02/25/17 13:08 13:08 WBC 3.20 10^3/uL L 10^3/uL (3.80-9.50) RBC 3.15 10^6/uL L 10^6/uL (4.40-6.38) Hgb 12.7 g/dL L g/dL (13.7-17.5) Hct 35.8 % L % (40.0-51.0) MCV 113.7 fL H fL (81.5-99.8) MCH 40.3 pg H pg (27.9-34.1) MCHC 35.5 g/dL g/dL (32.4-36.7) RDW 14.7 % % (11.5-15.2) Plt Count 50 10^3/uL L 10^3/uL (150-400) MPV 9.4 fL fL (8.7-11.7) Neut % (Auto) 49.9 % % (39.3-74.2) Lymph % (Auto) 39.7 % % (15.0-45.0) [place] % (Auto) 6.6 % % (4.5-13.0) Eos % (Auto) 1.6 % % (0.6-7.6) Baso % (Auto) 1.3 % % (0.3-1.7) Nucleat RBC Rel Count 0.6 % H % (0.0-0.2) Absolute Neuts (auto) 1.60 10^3/uL L 10^3/uL (1.70-6.50) Absolute Lymphs (auto) 1.27 10^3/uL 10^3/uL (1.00-3.00) Absolute Monos (auto) 0.21 10^3/uL L 10^3/uL (0.30-0.80) Absolute Eos (auto) 0.05 10^3/uL 10^3/uL (0.03-0.40) Absolute Basos (auto) 0.04 10^3/uL 10^3/uL (0.02-0.10) Absolute Nucleated RBC 0.02 10^3/uL H 10^3/uL (0-0.01) Immature Gran % 0.9 % % (0.0-1.1) Immature Gran # 0.03 10^3/uL 10^3/uL (0.00-0.10) Sodium 141 mEq/L mEq/L (134-144) Potassium 3.8 mEq/L mEq/L (3.5-5.2) Chloride 96 mEq/L L mEq/L (97-110) Carbon Dioxide 24 mEq/l mEq/l (22-31) Anion Gap 21 mEq/L H mEq/L (8-16) BUN 17 mg/dL mg/dL (7-23) Creatinine 0.7 mg/dL mg/dL (0.7-1.3) Estimated GFR > 60 Glucose 68 mg/dL L mg/dL (70-100) Calcium 8.5 mg/dL mg/dL (8.5-10.4) Ethyl Alcohol 283 mg/dL H mg/dL (0-10) Medications Given: Discontinued Medications Chlordiazepoxide (Librium 25 Mg Prepack#6) 1 btl TAKEHOME EDNOW ONE Stop: 02/25/17 16:26 Last Admin: 02/25/17 16:32 Dose: 1 btl Chlordiazepoxide HCl (Librium) 50 mg PO EDNOW ONE Stop: 02/25/17 15:33 Last Admin: 02/25/17 15:34 Dose: 50 mg Departure - Departure Disposition: Home, Routine, Self-Care Clinical Impression: Alcohol intoxication Qualifiers: Complication of substance-induced condition: uncomplicated Qualified Code(s): F10.920 - Alcohol use, unspecified with intoxication, uncomplicated Condition: Good Instructions: Chlordiazepoxide/Clidinium (By mouth), Alcohol Intoxication (ED) Referrals: Bar Oneal MD [Primary Care Provider] - As per Instructions
[2017-02-25 13:41] LABS: ANION GAP 21 mEq/L (8-16); CALCIUM 8.5 mg/dL (8.5-10.4); CARBON DIOXIDE 24 mEq/l (22-31); CHLORIDE 96 mEq/L (97-110); CREATININE 0.7 mg/dL (0.7-1.3); ETHANOL SERUM 283 mg/dL (0-10); GLOMERULAR FILTRATION RATE > 60; GLUCOSE 68 mg/dL (70-100); POTASSIUM 3.8 mEq/L (3.5-5.2); SODIUM 141 mEq/L (134-144)
[2017-02-25] MEDS ORDERED: chlordiazePOXIDE 25 MG CAP PO ONE (15:32)
--- NOTE | 2017-02-25 16:23 | ASMTCMCOM ---
CM Note CM Note Notes: Patient brought to ED for alcohol withdrawal; however, MD declined admission. I was asked to speak with patient about homeless and [facility] resources. Patient accompanied by his friend of 40 years Quincy. It seems that patient has been on a downward spiral which has recently culminated in his being evicted from [address]. Quincy is not able to house patient, and patient has been disagreeable to the [facility] or [facility]. I encouraged patient to go to [facility] to have supervision during his detox. I also gave [place]cy resources on how patient can go through the [employer] program to get in the system for resources in the community. Date Signed: 02/25/2017 04:23 PM Electronically Signed By:Bertha Olivia RN
[2017-02-25] MEDS ORDERED: CHLORDIAZEPOXIDE 25MG PREPK#6 BTL TAKEHOME ONE (16:25)
[2017-02-25 16:38] VITALS: BP 105/77; PULSE 85; RESP 20; O2SAT 89
== END 2017-02-25 16:40 | disposition home or self-care (01) ==
DX: F10.920 Alcohol use, unspecified with intoxication, uncomplicated (principal); F17.200 Nicotine dependence, unspecified, uncomplicated; I10 Essential (primary) hypertension; I25.10 Atherosclerotic heart disease of native coronary artery without angina pectoris; Z79.82 Long term (current) use of aspirin; Z95.5 Presence of coronary angioplasty implant and graft
CPT/HCPCS: G0480

== ENCOUNTER 2017-02-25 20:19 | Inpatient (IN) | payer OTHER, MEDICAID ==
[2017-02-25] MEDS ORDERED: LORazepam 2 MG/ML INJ IVP ONE (20:38)
[2017-02-25] MEDS ORDERED: NS 1,000 ML IV ONE (20:38)
--- NOTE | 2017-02-25 20:52 | EDPHY ---
H & P Time Seen by Provider: 02/25/17 20:35 HPI/ROS: CHIEF COMPLAINT: Can't stay at detox HISTORY OF PRESENT ILLNESS: This 71-year-old man was seen by me earlier and brought is brought in by friend Quincy because he went unconscious and passed out at home. Patient is frequent alcohol use and told me he had been having dizziness for the past 6 months. He was sent to detox but was brought back in because they said he had repetitive questioning and could not stay there. Of note he is homeless because he got evicted from his living place today. He is mildly tremulous but does not have any medical complaints now. REVIEW OF SYSTEMS: Eye: no change in vision ENT: no sore throat Cardiac: no chest pain or syncope Pulmonary: no cough or SOB Abdomen: no vomiting, diarrhea, abdominal pain Musculoskeletal: no back pain Skin: no rash Neuro: no headache Constitutional: no fever : no urinary symptoms A comprehensive 10 point review of systems is otherwise negative aside from elements mentioned in the history of present illness. PAST MEDICAL HISTORY: Includes hypertension, coronary disease, hyperlipidemia and alcoholism 2 stents. Social history: . Recent alcohol, specifically vodka, ingestion General Appearance: Alert and conversant, cooperative. Eyes: No scleral icterus. ENT, Mouth: Normal mucous membranes. Respiratory: Normal respiratory effort, breath sounds equal, some wheezing on exam, no focal lung sounds. Speaks full sentences. Cardiovascular: Regular rate and rhythm. Gastrointestinal: Abdomen is soft and non tender. Neurological: Alert and oriented x person, and year but not month or date. He does not remember where he just came from. Normally conversant. Face symmetric , normal movement and sensation in all extremities. Ktrqeh-it-euyvsjebrm tremulous, finger 2 nose normal bilaterally. Skin: Warm and dry, no rashes. Musculoskeletal: No peripheral edema and no joint swelling. No calf tenderness. Psychiatric: Not agitated. Emergency Department course/MDM: Patient has hypoxia on arrival, chest x-ray ordered. Moderately tremulous, 2 mg IV Ativan ordered. Needs to be admitted for benzodiazepine treatment of alcohol withdrawal, does not have a home to go to and has been denied at detox. 2100: [place] to admit. Smoking Status: Current every day smoker Constitutional: Initial Vital Signs Temperature (C) 36.8 C 02/25/17 20:20 Heart Rate 82 02/25/17 20:20 Respiratory Rate 16 02/25/17 20:20 Blood Pressure 123/76 H 02/25/17 20:20 O2 Sat (%) 85 L 02/25/17 20:20 O2 Delivery Mode Nasal Cannula O2 (L/minute) 2 Allergies/Adverse Reactions: No Known Allergies Allergy (Unverified 12/10/13 12:35) Home Medications: Medication Instructions Recorded Clopidogrel Bisulfate [Plavix (*)] 75 mg PO DAILY 12/20/13 Ramipril [Altace 5mg (*)] 5 mg PO DAILY 12/20/13 Carvedilol [Coreg (*)] 6.25 mg PO BIDMEAL 02/12/15 Aspirin EC [Aspirin EC 81 mg (*)] 81 mg PO DAILY #100 tab 02/13/15 [facility]-3 Fatty Acids [Fish Oil 1000 1,000 mg PO BID 04/27/16 mg (*)] Simvastatin [Zocor] 40 mg PO HS 04/27/16 Levothyroxine [Synthroid 75 mcg 75 mcg PO DAILY AT 6AM #0 tab 05/03/16 (*)] Medical Decision Making - Diagnostics Imaging Results: Chest x-ray personally interpreted as negative for infiltrate or CHF. - Data Points Medications Given: Chlordiazepoxide HCl (Librium) 25 mg PO TID [facility] Stop: 08/24/17 21:59 Last Admin: 02/25/17 23:20 Dose: 25 mg Levothyroxine Sodium (Synthroid) 75 mcg PO DAILY AT 6AM [facility] Stop: 08/25/17 05:59 Last Admin: 02/26/17 05:01 Dose: 75 mcg Lorazepam (Ativan Injection) 1 mg IVP Q4HRS PRN PRN Reason: Agitation Stop: 08/24/17 21:02 Last Admin: 02/26/17 04:56 Dose: 1 mg Prednisone (Prednisone) 40 mg PO DAILY [facility] Stop: 08/24/17 21:44 Last Admin: 02/25/17 23:21 Dose: 40 mg Discontinued Medications Sodium Chloride (Ns) 1,000 mls @ 0 mls/hr IV EDNOW ONE; Wide Open PRN Reason: Protocol Stop: 02/25/17 20:39 Last Admin: 02/25/17 20:56 Dose: 1,000 mls Sodium Chloride (Ns) 500 mls @ 1,500 mls/hr IV ONCE ONE Stop: 12/01/17 21:20 Last Admin: 02/25/17 23:22 Dose: 500 mls Lorazepam (Ativan Injection) 2 mg IVP EDNOW ONE Stop: 02/25/17 20:39 Last Admin: 02/25/17 20:56 Dose: 2 mg Departure - Departure Disposition: [facility] Clinical Impression: Hypoxia Alcohol withdrawal Qualifiers: Complication of substance-induced condition: uncomplicated Qualified Code(s): F10.230 - Alcohol dependence with withdrawal, uncomplicated Condition: Fair
[2017-02-25] MEDS ORDERED: ACETAMINOPHEN 325 MG TAB PO PRN (21:01)
[2017-02-25] MEDS ORDERED: NS 500 ML IV ONE (21:01)
[2017-02-25] MEDS ORDERED: ONDANSETRON 4 MG/2 ML VIAL IVP PRN (21:01)
[2017-02-25] MEDS ORDERED: ONDANSETRON DISINTEGRATING 4 MG TAB PO PRN (21:01)
[2017-02-25] MEDS ORDERED: NICOTINE POLACRILEX 2 MG GUM B PRN (21:04)
[2017-02-25 21:14] LABS: PLATELET COUNT 54 10^3/uL (150-400)
[2017-02-25] MEDS ORDERED: IPRATROPIUM/ALBUTEROL 3 ML DEYVIAL IH PRN (21:39)
--- NOTE | 2017-02-25 22:07 | GHP ---
[f rep st] HISTORY AND PHYSICAL DATE OF ADMISSION: 02/25/2017 CHIEF COMPLAINT: Tremulousness. HISTORY OF PRESENT ILLNESS: A 71-year-old male, recently homeless with an alcohol abuse problem, who presented to the emergency department earlier today with complaints of vertigo. Patient was treated for early alcohol withdrawal and discharged to outpatient detox center. Detox Center contacted the emergency department and sent the patient back later this evening with progressive symptoms of alcoho l withdrawal. In the emergency department, the patient is denying chest pain, denying shortness of b reath, reports tremulousness, describes his last drink as being approximately 48 hours ago. Denies a ny visual or auditory hallucinations. Denies any nausea, any vomiting, any abdominal discomfort. De nies diarrhea, dysuria, hematuria, lower extremity edema, myalgias, or arthralgias. PAST MEDICAL HISTORY: 1. Alcohol abuse. 2. Coronary artery disease, status post 2 stents. 3. COPD. 4. Tobacco dependence. SOCIAL HISTORY: Patient is homeless, abuses alcohol, pint or more of vodka a day. Actively smokes t obacco, pack per day, has done so for over 20 years. Denies any illicit drugs or marijuana. FAMILY HISTORY: Positive for heart disease. REVIEW OF SYSTEMS: A 10-point review of systems is negative with the exception of that reported in t he HPI. PHYSICAL EXAMINATION: VITAL SIGNS: Blood pressure 123/76, heart rate 82, respiratory rate 16, satur ating 89% on room air. GENERAL: This is a disheveled appearing, middle-aged male. HEENT: Notable for dry mucous membranes. Eyes negative for any icterus. CARDIAC: Patient is regular rate and rhyt hm. PULMONARY: Diffusely wheezy on examination. GASTROINTESTINAL: Positive bowel sounds. ABDOMEN : Soft. MUSCULOSKELETAL: Negative for any lower extremity edema. SKIN: Negative for any rashes. NEUROLOGIC: Patient is markedly tremulous and falling asleep during my exam. DATA: White count 2.8, which is baseline, hematocrit 33.8, baseline. Platelets 54, near baseline. MCV of 113. Creatinine 0.7. Sodium 138. Noncontrast CT of the head obtained earlier today, which I personally reviewed and interpreted, shows no acute findings. ASSESSMENT AND PLAN: This is a 71-year-old male, presenting with tremulousness. 1. Acute alcohol withdrawal. Will place the patient on CIWA with scheduled clorazepate treatment an d p.r.n. Ativan. Will initiate IV thiamin until his oral intake is normal and replete electrolytes a s needed. 2. Acute hypoxic respiratory failure. Patient is very wheezy on examination. Will send a respirato ry pathogen PCR, initiate scheduled nebs, and some oral prednisone for chronic obstructive pulmonary disease exacerbation. Will wait on empiric antibiotics until we check a chest x-ray and rule out inf ectious pathogens. 3. Suspected acute chronic obstructive pulmonary disease exacerbation. Will check a chest x-ray, re spiratory PCR, and initiate medications as above. 4. Coronary artery disease. Patient denies any active chest pain. Will continue his home dosing of aspirin, Plavix, carvedilol, and AMA inhibitor, as well as statin. 5. Hypothyroidism. Will continue patient's Synthroid therapy. 6. Pancytopenia. Patient's cell counts appear to be his recent baselines, including his anemia, sundar kopenia, and thrombocytopenia, all likely related to alcohol marrow suppression. 7. Prophylaxis with Lovenox. 8. Diet regular. 9. Disposition. I expect greater than 2 midnights as the patient is presenting with acute alcohol w ithdrawal and hypoxia, requiring treatment and supportive care. I have discussed the case with the emergency room physician. Patient will be triaged to the medical- surgical floor for care. /[id number]/MODL
[2017-02-25] MEDS: LORazepam 2 MG/ML INJ IVP PRN (22:31)
[2017-02-25] MEDS: chlordiazePOXIDE 25 MG CAP PO SCH (23:20)
[2017-02-25] MEDS: predniSONE 20 MG TAB PO SCH (23:21)
[2017-02-26 04:52] LABS: PLATELET COUNT 53 10^3/uL (150-400)
[2017-02-26] MEDS: LORazepam 2 MG/ML INJ IVP PRN ×6 (04:56→19:53)
[2017-02-26] MEDS: LEVOTHYROXINE 75 MCG TAB PO SCH (05:01)
[2017-02-26] MEDS: THIAMINE HCL 500 MG in NS 100 ML IV SCH (08:14)
[2017-02-26] MEDS: RAMIPRIL 5 MG CAP PO SCH (08:15)
[2017-02-26] MEDS: chlordiazePOXIDE 25 MG CAP PO SCH ×3 (08:15→22:35)
[2017-02-26] MEDS: ENOXAPARIN 40 MG/0.4 ML SYR SC SCH (08:15)
[2017-02-26] MEDS: ASPIRIN EC 81 MG TAB PO SCH (08:15)
[2017-02-26] MEDS: predniSONE 20 MG TAB PO SCH (08:15)
[2017-02-26] MEDS: CLOPIDOGREL BISULFATE 75 MG TAB PO SCH (08:15)
[2017-02-26] MEDS: OMEGA-3 FATTY ACIDS 1,000 MG CAP PO SCH ×2 (08:15→20:37)
[2017-02-26] MEDS: CARVEDILOL 6.25 MG TAB PO SCH ×2 (08:16→17:45)
--- NOTE | 2017-02-26 08:45 | PDMN ---
Medical Necessity Medical necessity: Pt meets INPT criteria per MD as of 02/25/17; est. LOS >2 MN for eval/mgmt of acute alcohol withdrawal, acute hypoxic respiratory failure, suspected acute COPD exacerbation, pancytopenia; hx CAD per H&P.
[2017-02-26] MEDS: MULTIVITAMINS W-MINERALS 1 EACH TAB PO SCH (09:14)
[2017-02-26] MEDS ORDERED: HALOPERIDOL 2 MG TAB PO SCH (12:00)
[2017-02-26] MEDS ORDERED: NICOTINE 21 MG/24 HR PATCH TD PRN (12:05)
[2017-02-26] MEDS ORDERED: DEXMEDETOMIDINE IN 0.9 % NACL 100 ML IV SCH (12:30)
[2017-02-26] MEDS ORDERED: DEXMEDETOMIDINE HCL 400 MCG in NS 100 ML IV SCH (12:30)
--- NOTE | 2017-02-26 12:50 | HOSPPROG ---
Hospitalist Progress Note Assessment/Plan: DIAGNOSES: -acute alcohol withdrawal with increasing CIWA scores and question of possible seizure today while on benzodiazepine -acute hypoxemic respiratory failure -COPD exacerbation -alcoholism, suspect thiamine deficiency -homelessness The patient at this time is significantly increased in terms of symptoms and tremor and there is suspicion that he may have had seizure despite use of both scheduled benzos his pain and scheduled Haldol. Given the timing of his last drink in the increase in symptoms I suspect he will continue to have an increase in symptoms and physiologic abnormalities related to withdrawal. We have elected to move him to intensive care unit where I have ordered a Precedex drip. PLANS: -transfer to ICU for ongoing monitoring and management of acute alcohol withdrawal -continue scheduled benzodiazepine for seizure prevention -Precedex drip for management of alcohol withdrawal -ongoing respiratory treatments for COPD exacerbation -thiamin replacement -encourage intake of food as able SUBJECTIVE: Patient is confused and unable to really clearly status symptoms. He seems to deny pain. 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: Sinus rhythm Exam: Awake but groggy, disoriented, unable to articulate words clearly He has a continuous severe tremor in both upper extremities and intermittently in other parts of his body as well skin warm dry color ok no jaundice resps not labored lungs very diminished BSs heart regular abd soft nondistended nontender, bowel sounds present limbs warm, no edema iv site ok I reviewed the images from yesterday's chest x-ray, which on my interpretation show clear but hyperexpanded lungs with some enlargement heart particularly right ventricle and right ventricular outflow tract Objective: Vital Signs Temp Pulse Resp BP Pulse Ox 37.1 C 83 21 H 132/85 H 97 02/26/17 11:50 02/26/17 12:00 02/26/17 12:00 02/26/17 12:00 02/26/17 12:00 Laboratory Results 02/26/17 03:49 02/26/17 03:49 02/25/17 02/26/17 02/27/17 06:59 06:59 06:59 Intake Total 1250 220 Balance 1250 220 - Time Spent With Patient Time Spent with Patient: greater than 35 minutes Time Spent with Patient: Greater than 35 minutes spent on this patients care, greater than 50% of time spent counseling, educating, and coordinating care regarding the above mentioned plan. ICD10 Worksheet Patient Problems: Problems Problem Status Onset Alcohol withdrawal Acute Hypoxia Acute Alcohol intoxication Acute COPD (chronic obstructive pulmonary disease) Acute Primary localized osteoarthritis of left hip Acute
--- NOTE | 2017-02-26 17:16 | GCON ---
[f rep st] CONSULTATION CRITICAL CARE CONSULT DATE OF CONSULTATION: 02/26/2017 HISTORY OF PRESENT ILLNESS: This patient is a 71-year-old male with a history of alcohol abuse, who presented to the Emergency Department yesterday complaining of dizziness. He was treated for alcohol withdrawal at an outpatient detox center, but he was sent in because of the dizziness. He was initi ally treated with CIWA protocol on the floor, and seemed to be doing relatively okay with Librium, bu t his Ativan requirement continued to escalate, so he was transferred to the Intensive Care Unit, whe re he was started on a Precedex drip. The patient is asleep right down, unable to answer any questio ns. REVIEW OF SYSTEMS: Otherwise, negative based primarily on the chart, where he denied visual or audit ory hallucinations, nausea, vomiting, or abdominal discomfort, diarrhea, dysuria, hematuria, lower ex tremity edema. PAST MEDICAL HISTORY: Alcohol abuse, coronary artery disease, COPD, tobacco dependence. PAST SURGICAL HISTORY: Coronary stents. SOCIAL HISTORY: He is homeless. Drinks a pint or more vodka daily. Smokes a pack a day of tobacco for at least 20 years, but no other recreational drugs. FAMILY HISTORY: Coronary artery disease. CURRENT MEDICATIONS: DuoNeb, aspirin, Lipitor, Coreg, Librium, Plavix, Precedex drip, Lovenox, Synth roid, Ativan, NicoDerm, Zofran, prednisone, thiamine. PHYSICAL EXAM: VITAL SIGNS: His blood pressure was 135/79, heart rate of 84, respirations 25, oxyge n saturation 98% on 4 L. GENERAL: For me he was quite somnolent, though he did arouse. He did not answer questions appropriately. HEENT: His pupils were equally round and reactive to light. Nonict lennox and noninjected. Mucous membranes moist without erythema or exudate. NECK: Supple, without ad enopathy or jugular vein distention. LUNGS: Breath sounds were distant, but clear to auscultation b ilaterally without wheezes, rubs, or rales. HEART: Regular rate and rhythm without murmurs, rubs, g allops. ABDOMEN: Soft, nontender, nondistended without hepatosplenomegaly. EXTREMITIES: No clubbi ng, cyanosis, or edema. NEUROLOGICAL: Notable for his somnolence, but was otherwise nonfocal, inclu ding cranial nerves. SKIN: Warm and dry without evidence of rash. LABORATORY DATA: White count of only 1.6 today, hematocrit 31, platelets of 53. Basic metabolic banegas el was unremarkable. ASSESSMENT AND PLAN: 1. Alcohol withdrawal. I agree with the Precedex drip. He could get Ativan or Librium based on his CIWA score alone, and hopefully this will recover relatively quickly. He is already getting multivi tamin, thiamine and folate as well, as well as IV fluids. He appears to be protecting his airway at this time, does not require any intubation or other noninvasive ventilation. 2. Chronic obstructive pulmonary disease. He appears to be quite stable from this perspective at th is time. I would probably taper his prednisone fairly quickly, but continue on with his DuoNeb in e short term. 3. Pancytopenia. My suspicion is this is related to bone marrow suppression, though an HIV test wou ld not be a bad idea. The bone marrow suppression likely from his underlying alcoholism. We can wor k this up further if it continues to drop. A total of 35 minutes critical care time was required for this patient. /[id number]/MODL
[2017-02-26] MEDS ORDERED: MAGNESIUM SULF 2 GM/WATER 50 ML IV ONE (19:50)
[2017-02-26] MEDS ORDERED: PROTOCOL MAGNESIUM 1 DOSE IV PRN (19:50)
[2017-02-26] MEDS: LR 1,000 ML IV SCH (20:13)
[2017-02-26] MEDS: ATORVASTATIN CALCIUM 20 MG TAB PO SCH (20:37)
[2017-02-27] MEDS: LORazepam 2 MG/ML INJ IVP PRN ×6 (00:37→21:02)
[2017-02-27] MEDS: chlordiazePOXIDE 25 MG CAP PO SCH ×2 (00:37→08:31)
[2017-02-27] MEDS: LR 1,000 ML IV SCH (01:24)
[2017-02-27] MEDS: LEVOTHYROXINE 75 MCG TAB PO SCH (04:46)
[2017-02-27 04:53] LABS: PLATELET COUNT 44 10^3/uL (150-400)
[2017-02-27] MEDS ORDERED: MAGNESIUM SULF 1 GM/DEXTROSE 100 ML IV ONE (06:34)
[2017-02-27] MEDS: THIAMINE HCL 500 MG in NS 100 ML IV SCH (08:13)
[2017-02-27] MEDS: CARVEDILOL 6.25 MG TAB PO SCH ×2 (08:31→17:22)
[2017-02-27] MEDS: OMEGA-3 FATTY ACIDS 1,000 MG CAP PO SCH ×2 (08:32→21:59)
[2017-02-27] MEDS: MULTIVITAMINS W-MINERALS 1 EACH TAB PO SCH (08:32)
[2017-02-27] MEDS: RAMIPRIL 5 MG CAP PO SCH (08:32)
[2017-02-27] MEDS: predniSONE 20 MG TAB PO SCH (08:41)
[2017-02-27] MEDS: ASPIRIN EC 81 MG TAB PO SCH (09:51)
[2017-02-27] MEDS: CLOPIDOGREL BISULFATE 75 MG TAB PO SCH (09:51)
[2017-02-27] MEDS: ENOXAPARIN 40 MG/0.4 ML SYR SC SCH (09:55)
[2017-02-27] MEDS: NICOTINE 21 MG/24 HR PATCH TD SCH (09:58)
[2017-02-27] MEDS ORDERED: POTASSIUM Cl (KCl) 20 MEQ in D5W NS 1,000 ML IV SCH (10:00)
--- NOTE | 2017-02-27 11:25 | PDINTPN ---
Pest Controller Progress Note Assessment/Plan: Assessment/plan: 71 M with well established history of etoh and tobacco abuse admitted 02/25/17 with dizziness and etoh wd. He was initially treated on the floor, but resquired transfer to ICU 02/26 with need for precedex drip which resulted in significant sedation. Although he denied SOB on admission, he was noted to have wheezing so was started on prednisone for a presumed COPD exacerbation. * ETOH- although he seemed very oriented this AM, answering questions appropriately, he was quite tremulous and said this was his baseline. However, he also denied etoh wd in the past, but a review of his records from [facility] and [facility] show multiple admissions for etoh. Todays plan is to observe closely while holding precedex and monitor his ativan requirement, which may be held if only for tremor. If he remains stable, he may need a neurology consult to evaluate for Parkinsons, esential tremor etc and whether he would be a candidate for sinemet, mirapex or others. The biulk of evidence, however, supports etoh wd. * Pancytopenia- his platelets have been low since 03/2016, likely from bone marrow suppression related to etoh. Continue to observe. * COPD- I dont think he is in respiratory distress in any way and his steroids could contribute to delerium, so would favor dc. Use nebs prn only to minize confounding variables when assessing tachycardia. I do not suspect PE Subjective: Precedex dc'd last PM but needed additional ativan as a result Objective: Vital Signs Temp Pulse Resp BP Pulse Ox 36.6 C 105 H 23 H 109/72 95 02/27/17 08:00 02/27/17 10:00 02/27/17 10:00 02/27/17 10:00 02/27/17 10:00 Laboratory Results 02/27/17 04:35 02/27/17 04:35 02/26/17 02/27/17 02/28/17 05:59 05:59 05:59 Intake Total 1250 2577.2 Output Total 1030 Balance 1250 1547.2 Physical Exam - Physical Exam General Appearance: alert, no apparent distress, other (severe tremor) EENT: PERRL/EOMI Neck: supple Respiratory: lungs clear, normal breath sounds, No respiratory distress, No wheezing Cardiac/Chest: normal peripheral pulses, regular rate, rhythm, tachycardia, No edema Abdomen: non-tender, soft, No distended Skin: normal color, warm/dry, No cyanosis Lymphatic: no adenopathy Extremities: No pedal edema Neuro/Psych: alert, oriented x 3, cognition abnormalities ICD10 Worksheet Patient Problems: Problems Problem Status Onset Alcohol withdrawal Acute Hypoxia Acute Alcohol intoxication Acute COPD (chronic obstructive pulmonary disease) Acute Primary localized osteoarthritis of left hip Acute
--- NOTE | 2017-02-27 11:52 | HOSPPROG ---
Hospitalist Progress Note Assessment/Plan: Assessment: 71-year-old male presents with tremulousness in the setting of acute COPD exacerbation, acute hypoxic respiratory failure Plan: 1. Tremulousness. Although it was initially reported as acute, the patient further clarifies that this is more chronic in nature, and at the present time the patient reports that his tremulousness is at or near his baseline -tremulousness is resting, visibly noticeable, and exacerbated by intentional movement -I reviewed outside records including 05/01/[address] 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 -remove benzodiazepines for possible alcohol withdrawal, that may have been the incorrect diagnosis on presentation 2. Acute COPD exacerbation. Evidenced by diffuse expiratory wheezes, respiratory failure on presentation, patient responded to steroids and scheduled duo nebs, unclear precipitant, patient most likely provoked with ongoing smoking -provide nicotine replacement therapy -discussed with Dr. Drew Valdez, we both agree the patient no longer has any expiratory wheezes and it is advisable 1st dose discontinue his steroids and scheduled nebs given his ongoing tachycardia and impulsiveness and anxiety -monitor for any ongoing evidence of recurrence 3. Acute hypoxic respiratory failure. Evidenced by SpO2 of 85% on room air with objective tachypnea respiratory rate of 25, symptomatic shortness of breath , secondary to COPD exacerbation, requiring supplemental oxygen -continue on 2 L nasal cannula, continued attempts to wean 4. Alcoholism. The patient was previously at the [facility], and was transferred to [facility] for visible tremulousness, but it may have been the his tremulousness was more chronic in nature and not evidence of worsening alcohol withdrawal -after discussion with Dr. Drew Valdez, we have agreed to discontinue the Precedex , removed the Librium, and leave the Ativan on as needed, along the nurse to administer if the patient demonstrates other signs of alcohol withdrawal outside of tremulousness -the patient is currently alert awake oriented x3, has good concentration, has linear thought process is only demonstrating some evidence of impulsiveness as well as tachycardia 5. Tachycardia. Acute, new problem this provider, further workup indicated. Unclear whether this is related to alcohol withdrawal or some other insidious process -personally interpreted telemetry, is currently a sinus tachycardia and his D- dimer is positive -will get CT angiogram to rule out pulmonary embolism -he is at risk for aspiration pneumonia but his chest x-ray on presentation was notably clear, although he was likely somewhat dehydrated -provided IV fluids with supplemental potassium and monitor 6. Pancytopenia. Secondary to chronic alcohol use, continue to monitor 7. Suspected dysphagia. Get BUSINESS SUPPORT MANAGER eval, VF S 8. Ataxia. Patient has yet to work with therapy modalities, get PT and OT -patient most likely require fdc facility for placement, recommend will begin addressing this from case management perspective -provided with high-dose IV thiamine -neurology will also address with a consultation tomorrow 9. Coronary artery disease. Chronic, reviewed outside records from April of 2016 indicates that his stents were placed in the remote past, reviewed all of our records and I am unable to locate any recent history -will discuss further with the patient tomorrow, will recommend single agent anti-platelet therapy moving forward given his bleeding risk with thrombocytopenia -will continue statin beta-carly Diet. Regular, BUSINESS SUPPORT MANAGER eval Prophylaxis. High risk patient, [facility] for Code. Full Disposition. Anticipated discharge uncertain this time, requiring ongoing medical care comma frequent reassessments in the step-down unit. Subjective: Patient reports he is feeling well but he would like to go out and smoke a cigarette Objective: Vital Signs Temp Pulse Resp BP Pulse Ox 36.6 C 105 H 23 H 109/72 95 02/27/17 08:00 02/27/17 10:00 02/27/17 10:00 02/27/17 10:00 02/27/17 10:00 Laboratory Results 02/27/17 04:35 02/27/17 04:35 02/26/17 02/27/17 02/28/17 05:59 05:59 05:59 Intake Total 1250 2577.2 Output Total 1030 450 Balance 1250 1547.2 -450 - Physical Exam Constitutional: no apparent distress, chronically ill appearing, No not in pain , No uncomfortable Cardiovascular: tachycardia, No systolic murmur, No irregularly irregular, No edema Respiratory: no respiratory distress, no rales or rhonchi, clear to auscultation Gastrointestinal: normoactive bowel sounds, soft, non-tender abdomen, no palpable masses Neurologic: AAOx3, other (Resting tremor, worse with intentional movement), No asterixes, No facial droop Psychiatric: thought process linear, anxious, flat affect, other (Concentration 7/7), No agitated ICD10 Worksheet Patient Problems: Problems Problem Status Onset Alcohol withdrawal Acute Hypoxia Acute Alcohol intoxication Acute COPD (chronic obstructive pulmonary disease) Acute Primary localized osteoarthritis of left hip Acute
[2017-02-27] MEDS ORDERED: IOPAMIDOL (ISOVUE 370) 100 ML BTL IV ONE (12:10)
[2017-02-27] MEDS: POTASSIUM Cl (KCl) 20 MEQ in D5W NS 1,000 ML IV SCH (13:00)
--- NOTE | 2017-02-27 16:57 | ASMTCMCOM ---
CM Note CM Note Notes: 71 yaer old male admitted for ETOH W/D, dizziness, tremors. He has a hx of ETOH and tobacco abuse, CAD-2 stents, COPD. On the CIWA protocal, to have a swallow eval. very tremulous. RN wondering if patient might have Parkinson's? Patient is homeless. Therapies recommending SNF. Date Signed: 02/27/2017 04:57 PM Electronically Signed By:Fang Wall LCSW
[2017-02-27] MEDS ORDERED: LIDOCAINE 2% JELLY 5 ML TUBE ONE (19:41)
[2017-02-27] MEDS: ATORVASTATIN CALCIUM 20 MG TAB PO SCH (21:59)
[2017-02-28] MEDS: POTASSIUM Cl (KCl) 20 MEQ in D5W NS 1,000 ML IV SCH ×2 (01:00→09:17)
[2017-02-28 05:34] LABS: PLATELET COUNT 53 10^3/uL (150-400)
[2017-02-28] MEDS: MULTIVITAMINS W-MINERALS 1 EACH TAB PO SCH (08:02)
[2017-02-28] MEDS: CARVEDILOL 6.25 MG TAB PO SCH ×2 (08:02→17:45)
[2017-02-28] MEDS: LEVOTHYROXINE 75 MCG TAB PO SCH (08:02)
[2017-02-28] MEDS: CLOPIDOGREL BISULFATE 75 MG TAB PO SCH (08:02)
[2017-02-28] MEDS: ASPIRIN EC 81 MG TAB PO SCH (08:02)
[2017-02-28] MEDS: OMEGA-3 FATTY ACIDS 1,000 MG CAP PO SCH ×2 (08:02→22:16)
[2017-02-28] MEDS: NICOTINE 21 MG/24 HR PATCH TD SCH (08:03)
[2017-02-28] MEDS: THIAMINE HCL 500 MG in NS 100 ML IV SCH (09:00)
[2017-02-28] MEDS ORDERED: MAGNESIUM SULF 2 GM/WATER 50 ML IV ONE (10:07)
[2017-02-28] MEDS ORDERED: LORazepam 1 MG TAB PO PRN (10:08)
--- NOTE | 2017-02-28 12:55 | ASMTCMCOM ---
CM Note CM Note Notes: Sent referrals out to the local SNF's. Patient reports that he has been to [facility], [facility] and [facility]. [facility] was not real interested in patient. They reported that under Medicare patients need to stay in the building for Rehab-patient has a car and was always out driving so they had to end his stay. CM to continue looking for rehabs. Date Signed: 02/28/2017 12:55 PM Electronically Signed By:Fang Wall LCSW
--- NOTE | 2017-02-28 14:35 | PDINTPN ---
Manager Recruiting Progress Note Assessment/Plan: Assessment: 71 M with well established history of etoh and tobacco abuse admitted 02/25/17 with dizziness and etoh wd. He was initially treated on the floor, but resquired transfer to ICU 02/26 with need for precedex drip which resulted in significant sedation. Although he denied SOB on admission, he was noted to have wheezing so was started on prednisone for a presumed COPD exacerbation. * ETOH- although he is very oriented this AM, answering questions appropriately , he was quite tremulous and said this was his baseline. However, he also denied etoh wd in the past, but a review of his records from [facility] and [facility] show multiple admissions for etoh. Off Precedex, has PRN PO Ativan but not needing. * Pancytopenia- his platelets have been low since 03/2016, likely from bone marrow suppression related to etoh. Continue to observe. * COPD- NO symptoms. Has PRN Duoneb. * tremor: Likely due to chronic EtOH. Neurology consult pending. * Hypomagnesemia Plan: PRN Ativan. Begin placement, ? SNF. Mg replacement. Can transfer to Medical floor. Change nebs to Combivent PRN. Follow platelets 02/28/17 14:51 Subjective: Feels better, denies cravings, hallucinations. More lucid. Objective: Vital Signs Temp Pulse Resp BP Pulse Ox 36.4 C 69 16 88/54 L 91 L 02/28/17 11:32 02/28/17 11:32 02/28/17 11:32 02/28/17 11:32 02/28/17 11:32 Laboratory Results 02/28/17 05:20 02/28/17 05:20 02/27/17 02/28/17 03/01/17 05:59 05:59 05:59 Intake Total 2577.2 2224 480 Output Total 1030 8225 Balance 1547.2 -251 480 Physical Exam - Physical Exam General Appearance: alert, no apparent distress EENT: normal ENT inspection Neck: normal inspection Respiratory: lungs clear, normal breath sounds Cardiac/Chest: regular rate, rhythm, No edema Abdomen: normal bowel sounds, non-tender, soft Skin: normal color, warm/dry Extremities: normal inspection Neuro/Psych: alert, normal mood/affect, oriented x 3, abnormal cerebellar tests , other (tremor) ICD10 Worksheet Patient Problems: Problems Problem Status Onset Alcohol withdrawal Acute Hypoxia Acute Alcohol intoxication Acute COPD (chronic obstructive pulmonary disease) Acute Primary localized osteoarthritis of left hip Acute
[2017-02-28] MEDS ORDERED: IPRATROPIUM/ALBUTEROL 4GM MDI IH PRN (14:49)
--- NOTE | 2017-02-28 14:56 | ASMTCMCOM ---
CM Note CM Note Notes: [facility] willing to admit patient when CIWA score is 3 or >. Patient has made [facility] his MPOA. [facility] can not admit. [facility] looking over the referral. Patient prefers to stay in [facility]. [facility] also interested but in [place]. Patient's CIWA today was =8. Date Signed: 02/28/2017 02:56 PM Electronically Signed By:Fang Wall LCSW
--- NOTE | 2017-02-28 15:21 | HOSPPROG ---
Hospitalist Progress Note Assessment/Plan: Assessment: 71-year-old male presents with tremulousness in the setting of acute COPD exacerbation, acute hypoxic respiratory failure Plan: 1. 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 Acute COPD exacerbation * Resolved 3. Acute hypoxic respiratory failure. Evidenced by SpO2 of 85% on room air with objective tachypnea respiratory rate of 25, symptomatic shortness of breath , secondary to COPD exacerbation, requiring supplemental oxygen -continue on 2 L nasal cannula, continued attempts to wean 4. Alcoholism. The patient was previously at the [facility], and was transferred to [facility] for visible tremulousness, but it may have been the his tremulousness was more chronic in nature and not evidence of worsening alcohol withdrawal * Improved * Without counting tremor CIWA is low 5. Tachycardia. * Resolved 6. Pancytopenia. Secondary to chronic alcohol use, continue to monitor 7. Suspected dysphagia. Get [employer] eval, VF S 8. Ataxia. Patient has yet to work with therapy modalities, get PT and OT -patient most likely require custodial facility for placement, recommend will begin addressing this from case management perspective -provided with high-dose IV thiamine -neurology input appreciated 9. Coronary artery disease. Chronic, reviewed outside records from April of 2016 indicates that his stents were placed in the remote past, reviewed all of our records and I am unable to locate any recent history * Will consider stopping Plavix Subjective: Tremor appears to be chronic. Patient is oriented. Objective: Vital Signs Temp Pulse Resp BP Pulse Ox 36.4 C 69 16 88/54 L 91 L 02/28/17 11:32 02/28/17 11:32 02/28/17 11:32 02/28/17 11:32 02/28/17 11:32 Laboratory Results 02/28/17 05:20 02/28/17 05:20 02/27/17 02/28/17 03/01/17 05:59 05:59 05:59 Intake Total 2577.2 2224 480 Output Total 1030 2475 Balance 1547.2 -251 480 - Physical Exam Constitutional: no apparent distress, appears nourished, not in pain Eyes: anicteric sclera, EOMI Ears, Nose, Mouth, Throat: moist mucous membranes, hearing normal Cardiovascular: regular rate and rhythym Respiratory: no respiratory distress, no rales or rhonchi, clear to auscultation Gastrointestinal: normoactive bowel sounds, soft, non-tender abdomen, no palpable masses Neurologic: AAOx3, other (Tremor) ICD10 Worksheet Patient Problems: Problems Problem Status Onset Alcohol withdrawal Acute Hypoxia Acute Alcohol intoxication Acute COPD (chronic obstructive pulmonary disease) Acute Primary localized osteoarthritis of left hip Acute
--- NOTE | 2017-02-28 16:58 | NEUROPROG ---
Assessment: [id number] CC: Tremors Narrative Summary: This male patient was initially seen 01/21/14. He had a syncopal episode a few days prior on 12/10/13 and then went to the ER that day (Head CT normal at that time). His syncope was reported to have occurred when he stood up and then felt a sense of impending faint and then passed out and struck his head. He reported he had used alcohol heavily the night before and had a beer that morning prior to standing so he feels that was the provoking factor. He feels he had a concussion because he had blurry vision for a few days after and a mild headache that improved over time. He was admitted to [facility] from 12/21/13 to 12/26/13 for a COPD exacerbation. He was noted to have alcoholism and some problems with withdrawal. He also was noted to have a long-standing tremor. He estimated the tremor has been present since 2008 or 2010. He felt the tremor was likely secondary to his heavy alcohol use. He has noted if he abstains for alcohol for 5 days or more the tremor will become much less. He denied any history of stroke or family history of tremor. The tremor was present in both arms equally and was worse with activity. He denied falls or walking issues. He denied stiffness or bradykinesia in his body. I felt his tremor was likely secondary to alcoholism but may also represent an underlying essential tremor. I recommended that he focus on treating his alcoholism and see if his symptoms improve. He was told to f/u as needed. He also appeared to have peripheral neuropathy likely from known alcoholism. F/U 02/28/17 when he was seen as an inpatient consult. He had been admitted to [facility] on 02/25/17 after a detox center he was at for alcoholism sent him there for problems with alcohol withdrawal. On admission he was noted also to have a possible COPD exacerbation. His tremor was not improving with [facility] protocol so neurology was consulted. PMHx: CAD with 2 stents placed, asthma as child, COPD, HTN, syncopal episode, alcoholism, tremor Meds: duoneb, ASA 81, lipitor, coreg, plavix 75, lovenox, synthroid, ativan prn , MTV, zofran prn, thiamine SHx: homeless, alcoholic, tobacco use FHx: heart disease ROS: Pt denied acute fever, total vision loss, active severe chest pain, respiratory failure, total body severe rash, total bowel/bladder incontinence, psychosis, active seizures, or active bleeding O: VS reviewed General: Alert Eyes: Fundoscopic exam not able to visualize optic disks CV: Heart RRR, no murmur, no carotid bruit Lungs: Clear to auscultation bilaterally, no rhonci or rales Neuro: - Mental: . Oriented x person/place/date . concentration appears normal . speech fluency/comprehension normal . memory appears reduced . fund of knowledge appear reduced - Cranial Nerves: . II: PERRL, VFFTC . III/IV/: EOMI, no nystagmus, normal smooth pursuits, no Ptosis . V: facial sensation intact to LT . VII: face symmetric to eye closure and smile . VIII: hearing intact to conversation . IX/X: uvula raises symmetrically . XI: SCM 5/5 B/L strength . XII: tongue protrudes midline w/nl strength - Motor: . Tone: normal tone in all 4 extrem, action tremor seen in face, arms, and legs . 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 Nothing acute (I personally reviewed 02/27/17) Assessment: 1. Alcoholism 2. 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 Peripheral Neuropathy, likely form alcoholism 4. History of CAD 5. COPD 6. Cognitive Difficulties: Noted on history, likely his chronic alcoholism is causing cognitive decline Plan: - Alcohol cessation is critical and represents his most important issue, his tremor may be from acute alcohol withdrawal or long-term alcohol use ( peripheral neuropathy or cerebellar degeneration), all 3 conditions are treated with alcohol cessation and symptomatic care - It will be difficult to determine what degree his tremor is from acute alcoholism until he is no longer using it - Recommend outpatient f/u in the neurology clinic in 2-3 weeks with no alcohol use until then, this will allow me to assess him without acute alcohol withdrawal being a concern No further neurologic w/u needed. Neurology will sign off but plz call if there is any change in neurologic status Objective: Vital Signs Temp Pulse Resp BP Pulse Ox 36.5 C 82 22 H 138/90 H 96 02/28/17 15:41 02/28/17 15:41 02/28/17 15:41 02/28/17 15:41 02/28/17 15:41 Laboratory Results 02/28/17 05:20 02/28/17 05:20 02/27/17 02/28/17 03/01/17 05:59 05:59 05:59 Intake Total 2577.2 2224 480 Output Total 1030 2475 Balance 1547.2 -251 480 Allergies/Adverse Reactions: No Known Allergies Allergy (Unverified 12/10/13 12:35)
[2017-02-28] MEDS: ALBUTEROL 200 PUFFS/18 GM MDI IH SCH ×2 (17:24→21:48)
[2017-02-28] MEDS: ATORVASTATIN CALCIUM 20 MG TAB PO SCH (22:16)
[2017-03-01 04:25] VITALS: RESP 16
[2017-03-01 05:59] LABS: PLATELET COUNT 62 10^3/uL (150-400)
[2017-03-01] MEDS: LEVOTHYROXINE 75 MCG TAB PO SCH (06:06)
[2017-03-01] MEDS: ALBUTEROL 200 PUFFS/18 GM MDI IH SCH (06:12)
[2017-03-01 07:48] VITALS: BP 145/86; PULSE 76; TEMP 98.4; O2SAT 94
[2017-03-01] MEDS ORDERED: MAGNESIUM SULF 2 GM/WATER 50 ML IV ONE (08:35)
--- NOTE | 2017-03-01 08:43 | PDIAF ---
- Diagnosis Diagnosis: alcohol withdrawl Code Status: Full Code - Medication Management Discharge Medications: Medications to Continue on Transfer Ramipril [Altace 5mg (*)] 5 mg PO DAILY 12/20/13 [Last Taken 02/11/15 08:00] Carvedilol [Coreg (*)] 6.25 mg PO BIDMEAL 02/12/15 [Last Taken 02/11/15 08:00] Aspirin EC [Aspirin EC 81 mg (*)] 81 mg PO DAILY #100 tab 02/13/15 [Last Taken Unknown] [place]-3 Fatty Acids [Fish Oil 1000 mg (*)] 1,000 mg PO BID 04/27/16 [Last Taken Unknown] Simvastatin [Zocor] 40 mg PO HS 04/27/16 [Last Taken Unknown] Levothyroxine [Synthroid 75 mcg (*)] 75 mcg PO DAILY AT 6AM #0 tab 05/03/16 [ Last Taken Unknown] Discharge Medications: Refer to the Discharge Home Medication list for PRN reason. - Orders Services needed: Physical Therapy, Occupational Therapy Isolation Type: None Diet Texture: Regular Texture Diet, Thin Liquids, Meds Whole in Puree - Follow Up Care Current Providers and Referrals: DAYANARA MCGREGOR [Other] - As per Instructions
[2017-03-01] MEDS: CARVEDILOL 6.25 MG TAB PO SCH (09:30)
[2017-03-01] MEDS: MULTIVITAMINS W-MINERALS 1 EACH TAB PO SCH (09:30)
[2017-03-01] MEDS: ASPIRIN EC 81 MG TAB PO SCH (09:30)
[2017-03-01] MEDS: CLOPIDOGREL BISULFATE 75 MG TAB PO SCH (09:30)
[2017-03-01] MEDS: OMEGA-3 FATTY ACIDS 1,000 MG CAP PO SCH (09:30)
[2017-03-01] MEDS: NICOTINE 21 MG/24 HR PATCH TD SCH (09:30)
--- NOTE | 2017-03-01 16:08 | ASDISCHSUM ---
Discharge Information Plan Status:SNF Medically Cleared to Leave:02/28/2017 Discharge Date:03/01/2017 11:50 AM CM D/C Disposition:Detention Facility ADT D/C Disposition:Detention Facility Projected Discharge Date:03/01/2017 11:30 AM Transportation at D/C:Wheelchair Van Discharge Delay Reason: Follow-Up Date:03/01/2017 11:30 AM Discharge Slot: Final Diagnosis:Tremors, COPD Exascerbation, Hypoxic resp Failure, ETOH Placement Information Referral Type:*Detention/SNF Referral ID:[id number] Provider Name:Numari Address 1:[address] Phone Number: Address 2: Fax Number: [facility]:[place] Selection Factors: State:[place] Referral Type:*Detention/SNF Referral ID:[id number] Provider Name:[facility] Address 1:[address] Phone Number: Address 2: Fax Number: [facility]:[place] Selection Factors: State:[place] Patient Contact Information Contact Name:IRINA Relationship:Friend Address: Work Phone: City: [facility] Phone: [facility]/Zip Code: Email: Financial Information Financial Class: Primary Plan Desc:MEDICARE INPATIENT Primary Plan Number:[id number] Secondary Plan Desc:MED[place] Secondary Plan Number:[id number] Assessment Information [facility] CM Progress Note CM Note CM Note Notes: 71 yaer old male admitted for ETOH W/D, dizziness, tremors. He has a hx of ETOH and tobacco abuse, CAD-2 stents, COPD. On the CIWA protocal, to have a swallow eval. very tremulous. RN wondering if patient might have Parkinson's? Patient is homeless. Therapies recommending SNF. Date Signed: 02/27/2017 04:57 PM Electronically Signed By:Fang Wall LCSW [facility] CM Progress Note CM Note CM Note Notes: Sent referrals out to the local SNF's. Patient reports that he has [facility] to [facility], [facility] and [facility]. [facility] was not real interested in patient. They reported that under Medicare patients need to stay in the building for Rehab-patient has a car and was always out driving so they had to end his stay. CM to continue looking for rehabs. Date Signed: 02/28/2017 12:55 PM Electronically Signed By:Fang Wall LCSW [facility] CM Progress Note CM Note CM Note Notes: [facility] willing to admit patient when CIWA score is 3 or >. Patient has made [facility] his MPOA. [facility] can not admit. [facility] looking over the referral. Patient prefers to stay in [place]. [facility] also interested but in [place]. Patient's CIWA today was =8. Date Signed: 02/28/2017 02:56 PM Electronically Signed By:Fang Wall LCSW Case Management Discharge Plan Note Case Management Discharge Discharge Order Complete? Answers: Yes Patient to Obtain Answers: Other Notes: [facility] Medications Transportation Arranged Answers: Other Notes: [facility] W/C Transport will Pick (Date 03/01/2017 11:30 AM & Time) Case Management Transport Answers: No Notes: Not needed Form Complete Faxed Final Orders Answers: Yes Notes: BM Agency/Facility Transfer Answers: Yes Notes: BM Report Printed & Faxed to Receiving Agency Family Notified Answers: No Notes: Estranged Discharge Comments Notes: Patient discharged to [facility]. Contacted [facility] patient's MPOA. Date Signed: 03/01/2017 09:06 AM Electronically Signed By:Fang Wall LCSW Intervention Information Intervention Type:*Incorrect Registration Date of Service:02/25/2017 09:01 PM Patient Type:Inpatient Staff Member:MICHELLE Polo, Christina Hours: Discipline: Severity: Comment: Intervention Type:*IM-Signed Date of Service:03/01/2017 09:47 AM Patient Type:Inpatient Staff Member:Indira Mary Hours: Discipline: Severity: Comment:
--- NOTE | 2017-03-01 17:59 | GDS ---
[f rep st] DISCHARGE SUMMARY DISCHARGE DIAGNOSIS: 1. Alcohol withdrawal. 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 3. History of coronary artery disease. 4. Pancytopenia secondary to alcohol. 5. Chronic obstructive pulmonary disease. HISTORY: This is a 71-year-old male who is homeless with a history of alcoholism, who presented with alcohol withdrawal. HOSPITAL COURSE: The patient was admitted. He was placed on alcohol withdrawal protocol. He did im prove with those. Tremor still persisted. He has had this tremor for some time. Neurology was cons ulted and thought that this was due to cerebellar degeneration from his alcoholism. He is improving overall and will be discharged to assisted facility. The patient does have a history of coronary artery disease and stenting done about 5 years ago. His platelets have been around the 50s. I think that he should probably not be on Plavix and we will jus t continue aspirin alone due to risk of bleeding. Greater than 30 minutes was spent on discharge. /[id number]/MODL
--- NOTE | 2017-03-04 14:35 | PQFORM ---
PHYSICIAN QUERY FORM Needs Your Response This query form is being sent to you to assure this patient record is coded properly. 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 Aponte, The diagnosis of acute respiratory failure is documented in the History and Physical dated 02/25/2017 and in several progress notes. Would this be appropriate as an additional diagnosis on the discharge summary? Yes x No Other Clinically Undetermined Many thanks, JENAE Perkins [facility]/Coding Department w: [phone] INSTRUCTIONS FOR RESPONSE: Answer question by clicking on the "Edit Document" button. Move cursor to area below the stars. When complete, hit "Save." Click on the "Sign" button, then click "Sign" again. Type in your PIN and hit "Enter." MTDD
== END 2017-03-01 11:50 | DRG 896 ==
LOC: EDUNIT# → OBSVTOIN 20:57 → F2W 22:46 → F2N 02-26 11:47
PROVIDERS: ADMIT Hospitalist; ATTEND Internal Medicine
PROC: HZ2ZZZZ Detoxification Services for Substance Abuse Treatment (ICD-10-PCS; principal; 2017-02-25)
DX: F10.230 Alcohol dependence with withdrawal, uncomplicated (principal); G31.2 Degeneration of nervous system due to alcohol; G62.1 Alcoholic polyneuropathy; D61.818 Other pancytopenia; J44.1 Chronic obstructive pulmonary disease with (acute) exacerbation; J96.01 Acute respiratory failure with hypoxia; I25.10 Atherosclerotic heart disease of native coronary artery without angina pectoris; Z95.5 Presence of coronary angioplasty implant and graft; Z79.02 Long term (current) use of antithrombotics/antiplatelets; F17.210 Nicotine dependence, cigarettes, uncomplicated; Z59.0 Homelessness
CPT/HCPCS: 92610-GN; 92611-GN; 96374; 97110-GP; 97116-GP; 97161-GP; 97165-GO; 97530-GO; 97535-GO; G0480; G8978-GP-CL; G8979-GP-CK; G8987-GO-CL; G8988-GO-CI; G8996-GN-CI; G8997-GN-CH; G8997-GN-CI; G8998-GN-CI; J1650; J2060; J3411; J3475; Q9967

== ENCOUNTER 2017-05-13 16:28 | Emergency (ER) | payer OTHER, MEDICAID ==
[2017-05-13] MEDS ORDERED: IPRATROPIUM/ALBUTEROL 3 ML DEYVIAL IH ONE (16:40)
--- NOTE | 2017-05-13 16:43 | EDPHY ---
H & P Stated Complaint: Elevated d-dimer, flu Source: Patient, retirement records, Old records - Personal History Current Tetanus/Diphtheria Vaccine: Yes Current Tetanus Diphtheria and Acellular Pertussis (TDAP): Yes - Medical/Surgical History Hx Asthma: Yes Hx Chronic Respiratory Disease: No Hx Diabetes: No Hx Cardiac Disease: Yes Hx Renal Disease: No Hx Cirrhosis: No Hx Alcoholism: Yes Hx HIV/AIDS: No Hx Splenectomy or Spleen Trauma: No Other PMH: PMH- HTN, HLD, CAD, ETOH abuse. PSH- CARDIAC STENT X1 - Social History Smoking Status: Current every day smoker Time Seen by Provider: 05/13/17 16:40 HPI/ROS: HPI: This is a 72-year-old male who presents with Chief Complaint: Influenza positive, D-dimer elevation Location: Body Quality: Abnormal lab work Duration: Received this afternoon result Signs and Symptoms: no shortness of breath at rest, no shortness of breath on exertion, + cough, no chest pain, no palpitations, no lower extremity edema, + wheezing, no orthopnea, no paroxysmal nocturnal dyspnea, + fever, no injury/ trauma, no hemoptysis Timing: Acute Severity: Moderate Context: Patient is from [facility] sent to the emergency room after he was diagnosed with influenza yesterday and started on Tamiflu. Patient had some confusion and lethargy so labs were drawn yesterday. D-dimer resulted this afternoon and was positive at 299. Patient is unsure why he is in the emergency room. He he reports heavy smoker long-term use. Not on supplemental oxygen at home. Does not normally take nebulizer or inhaler therapy. Modifying Factors: None Comment: ROS: see HPI Constitutional: + fever, no chills, no weight loss Eyes: No blurred vision Respiratory: No shortness of breath,+ cough Cardiovascular: No chest pain, no palpitations, no lower extremity edema Gastrointestinal: No nausea, no vomiting, no diarrhea Genitourinary: No dysuria Extremities: No myalgias Neurologic: No weakness, no numbness Skin: No rashes Hematologic: No bruising, no bleeding MEDICAL/SURGICAL/SOCIAL HISTORY: PMH- HTN, HLD, CAD, ETOH abuse PSH- CARDIAC STENT X1 Social history: Resident of assisted living. Retired. CONSTITUTIONAL: Chronically ill-appearing adult white male, awake and alert, no obvious distress HEENT: Atraumatic and normocephalic, PERRL, EOMI. Tympanic membranes clear. Oropharynx clear, no exudate and moist pink mucosa. Airway patent. No lymphadenopathy. No meningismus. Cardiovascular: Normal S1/S2, regular rate, regular rhythm, without murmur rub or gallop. PULMONARY/CHEST: Symmetrical and nontender. Expiratory wheezing throughout. fair air movement. No accessory muscle usage. unproductive cough noted. ABDOMEN: Soft, nondistended, nontender, no rebound, no guarding, no peritoneal signs, no masses or organomegaly. No CVAT. EXTREMITIES: 2/2 pulses, strength 5/5, no deformities, no clubbing, no cyanosis or edema. NEUROLOGICAL: no focal neuro deficits. GCS 15. SKIN: Warm and dry, no erythema. no rash. Good capillary refill. (Allison Jasmine) Constitutional: Initial Vital Signs Temperature (C) 37.6 C 05/13/17 16:32 Heart Rate 83 05/13/17 16:32 Respiratory Rate 16 05/13/17 16:32 Blood Pressure 109/60 05/13/17 16:32 O2 Sat (%) 88 L 05/13/17 16:32 O2 Delivery Mode Room Air O2 (L/minute) 2 Allergies/Adverse Reactions: No Known Allergies Allergy (Unverified 12/10/13 12:35) Home Medications: Medication Instructions Recorded Ramipril [Altace 5mg (*)] 5 mg PO DAILY 12/20/13 Carvedilol [Coreg (*)] 6.25 mg PO BIDMEAL 02/12/15 Aspirin EC [Aspirin EC 81 mg (*)] 81 mg PO DAILY #100 tab 02/13/15 [place]-3 Fatty Acids [Fish Oil 1000 1,000 mg PO BID 04/27/16 mg (*)] Simvastatin [Zocor] 40 mg PO HS 04/27/16 Levothyroxine [Synthroid 75 mcg 75 mcg PO DAILY AT 6AM #0 tab 05/03/16 (*)] Albuterol [Proventil Inhaler HFA 1 - 2 puffs IH Q4H #1 mdi 05/13/17 (*)] Benzonatate [Tessalon Pearles (RX)] 100 mg PO Q6 PRN #15 cap 05/13/17 Medical Decision Making ED Course/Re-evaluation: Labs, CTA chest, IV fluids, nebulizer therapy ordered Reviewed vital signs reviewed upon arrival in O2 sats 88% on room air. Influenza positive; started on Tamiflu Will evaluate for pulmonary embolism and pneumonia. 1720: End of shift. Signed over to Dr. Mullen pending CT angio results. This patient was seen under the supervision of my secondary supervising physician. I evaluated care for this patient independently. Discussed this patient with Dr. Mullen who did not see the patient. (Allison Jasmine) The patient is signed out to me at change of shift. Patient is awaiting CT results. CT angio chest: Please refer the dictated report by Dr. Demarco. I discussed the case with him. No pulmonary embolus noted. I discussed the results with the patient. No distress or complaints on recheck. He is given warnings prior to leaving. He will be sent back to the nursing care facility. (Amanda Mullen) Differential Diagnosis: Shortness of breath including but not limited to pulmonary infectious process, COPD, asthma, pulmonary embolus and congestive heart failure. (Allison Jasmine) - Data Points Laboratory Results: Laboratory Results 05/13/17 16:38 05/13/17 16:38 05/13/17 05/13/17 16:38 16:38 WBC 6.82 10^3/uL 10^3/uL (3.80-9.50) RBC 4.05 10^6/uL L 10^6/uL (4.40-6.38) Hgb 13.0 g/dL L g/dL (13.7-17.5) Hct 38.9 % L % (40.0-51.0) MCV 96.0 fL fL (81.5-99.8) MCH 32.1 pg pg (27.9-34.1) MCHC 33.4 g/dL g/dL (32.4-36.7) RDW 12.7 % % (11.5-15.2) Plt Count 153 10^3/uL 10^3/uL (150-400) MPV 9.2 fL fL (8.7-11.7) Neut % (Auto) 45.8 % % (39.3-74.2) Lymph % (Auto) 32.0 % % (15.0-45.0) Edwards % (Auto) 11.7 % % (4.5-13.0) Eos % (Auto) 9.5 % H % (0.6-7.6) Baso % (Auto) 0.9 % % (0.3-1.7) Nucleat RBC Rel Count 0.0 % % (0.0-0.2) Absolute Neuts (auto) 3.12 10^3/uL 10^3/uL (1.70-6.50) Absolute Lymphs (auto) 2.18 10^3/uL 10^3/uL (1.00-3.00) Absolute Monos (auto) 0.80 10^3/uL 10^3/uL (0.30-0.80) Absolute Eos (auto) 0.65 10^3/uL H 10^3/uL (0.03-0.40) Absolute Basos (auto) 0.06 10^3/uL 10^3/uL (0.02-0.10) Absolute Nucleated RBC 0.00 10^3/uL 10^3/uL (0-0.01) Immature Gran % 0.1 % % (0.0-1.1) Immature Gran # 0.01 10^3/uL 10^3/uL (0.00-0.10) Sodium 137 mEq/L mEq/L (135-145) Potassium 4.6 mEq/L mEq/L (3.5-5.2) Chloride 99 mEq/L mEq/L (97-110) Carbon Dioxide 24 mEq/l mEq/l (22-31) Anion Gap 14 mEq/L mEq/L (8-16) BUN 17 mg/dL mg/dL (7-23) Creatinine 0.9 mg/dL mg/dL (0.7-1.3) Estimated GFR > 60 Glucose 97 mg/dL mg/dL (70-100) Calcium 9.4 mg/dL mg/dL (8.5-10.4) Total Bilirubin 0.6 mg/dL mg/dL (0.1-1.4) Conjugated Bilirubin 0.4 mg/dL mg/dL (0.0-0.5) Unconjugated Bilirubin 0.2 mg/dL mg/dL (0.0-1.1) AST 32 IU/L IU/L (17-59) ALT 26 IU/L IU/L (21-72) Alkaline Phosphatase 61 IU/L IU/L (38-126) Troponin I < 0.012 ng/mL ng/mL (0.000-0.034) Total Protein 6.8 g/dL g/dL (6.3-8.2) Albumin 4.1 g/dL g/dL (3.5-5.0) Medications Given: Discontinued Medications Albuterol/Ipratropium (Duoneb) 3 ml IH EDNOW ONE Stop: 05/13/17 16:41 Last Admin: 05/13/17 16:48 Dose: 3 ml Departure - Departure Disposition: Home, Routine, Self-Care Clinical Impression: Influenza Condition: Good Instructions: Influenza (ED) Additional Instructions: Take Tamiflu as directed; use albuterol inhaler every 4 hr as needed for shortness of breath/dyspnea; take Tessalon Perles every 4 hr as needed for cough. Drink plenty of fluids and rest. Return at once for any worsening symptoms or concerns. Referrals: PCP Not In,Dictionary [Medical Doctor] - As per Instructions Prescriptions: Albuterol [Proventil Inhaler HFA (*)] 1 - 2 puffs IH Q4H #1 mdi Benzonatate [Tessalon Pearles (RX)] 100 mg PO Q6 PRN #15 cap PRN Reason: Cough, Moderate
[2017-05-13 16:44] LABS: PLATELET COUNT 153 10^3/uL (150-400)
[2017-05-13] MEDS ORDERED: IOPAMIDOL (ISOVUE 370) 100 ML BTL IV ONE (17:14)
[2017-05-13 18:17] VITALS: BP 102/68; PULSE 70; RESP 22; TEMP 98.1; O2SAT 95
== END 2017-05-13 19:20 | disposition home or self-care (01) ==
LOC: EDUNIT#
DX: J11.1 Influenza due to unidentified influenza virus with other respiratory manifestations (principal); I10 Essential (primary) hypertension; J45.909 Unspecified asthma, uncomplicated; I25.10 Atherosclerotic heart disease of native coronary artery without angina pectoris; F17.200 Nicotine dependence, unspecified, uncomplicated; Z79.82 Long term (current) use of aspirin; Z95.5 Presence of coronary angioplasty implant and graft
CPT/HCPCS: 71275; 99285; Q9967